=== PATIENT | male | born 1950 | race Caucasian/White ===

== ENCOUNTER 2017-11-21 00:17 | Inpatient (IN) | payer MEDICARE, OTHER ==
[~2017-11-21] VITALS: Ht 188 cm; Wt 102.5 kg
[2017-11-21] MEDS ORDERED: SODIUM CHLORIDE 0.9% 3,000 ML IV ONE (00:45)
[2017-11-21] MEDS ORDERED: MEPERIDINE HCL (50 MG/ML) 1 ML VIAL IV ONE (01:00)
[2017-11-21] MEDS ORDERED: DILTIAZEM HCL 25 MG/5 ML VIAL IV ONE (01:00)
[2017-11-21] MEDS ORDERED: METOPROLOL TARTRATE 1MG/1ML-5ML VIAL IV ONE (01:00)
[2017-11-21 01:31] LABS: Hemoglobin 13.5 g/dL (13.5-17.5); Mean Corpuscular Hemoglobin 30.3 pg (28.0-32.0); Platelet Count (auto) 107 10^3/uL (140-450); Red Blood Cells 4.45 10^6/uL (4.5-5.90); Red Cell Distribution Width 14.5 % (11.8-14.3); White Blood Cell 10.6 10^3/uL (4.4-10.8)
[2017-11-21 01:35] LABS: Alanine Aminotransferase 25 U/L (16-61); Albumin 4.1 g/dL (3.4-5.0); Anion Gap 13 (5-15); Aspartate Aminotransferase 26 U/L (15-37); BUN/Creatinine Ratio 24.4; Blood Urea Nitrogen 54 mg/dL (7-18); Calcium 8.4 mg/dL (8.5-10.1); Carbon Dioxide 26 mmol/L (21-32); Chloride 94 mmol/L (98-107); GFR African American 38 mL/min; GFR Non-African American 32 mL/min; Glucose 167 mg/dL (74-106); Potassium 4.2 mmol/L (3.5-5.1); Sodium 133 mmol/L (136-145)
[2017-11-21 01:39] LABS: Alkaline Phosphatase 208 U/L (45-117); Total Protein 9.2 g/dL (6.4-8.2)
[2017-11-21] MEDS ORDERED: ACETAMINOPHEN IV 1000 MG/100ML (10MG/ML) IV ONE (01:45)
[2017-11-21 01:52] LABS: Basophils % (manual) 0 (0.0-2.0); Blast Cells 0; Eosinophils % (manual) 0 (0-7); Metamyelocytes % 0; Myelocytes % 0; Promyelocytes % 0; Reactive Lymphocytes 0
[2017-11-21 01:53] LABS: Lactic Acid w/Reflex 3.1 mmol/L (0.4-2.0)
[2017-11-21 02:34] LABS: Urine Bacteria FEW /hpf (None Seen); Urine Blood TRACE /uL (Negative); Urine Specific Gravity 1.009 (1.001-1.035); Urine WBC 1 /hpf (0 - 3)
[2017-11-21] MEDS ORDERED: VANCOMYCIN 1GM/250ML 250 ML IV ONE (02:45)
[2017-11-21] MEDS ORDERED: LEVOFLOXACIN 750MG 150 ML IV ONE (02:45)
[2017-11-21] MEDS ORDERED: IBUPROFEN 100MG/5ML ORAL SUSP 100 MG/5 ML UD GT ONE (03:15)
[2017-11-21 03:34] LABS: Band Neutrophils % (manual) 2; Lymphocytes % (manual) 3 (10.0-50.0); Monocytes % (manual) 2 (0-12)
[2017-11-21 04:59] LABS: Fibrinogen 355.7 mg/dL (177-375); INR 1.44 (0.9-1.15); Prothrombin Time 15.1 sec (9.27-12.13)
[2017-11-21 05:07] LABS: Partial Thromboplastin Time 74.1 sec (23.78-33.04)
[2017-11-21] MEDS ORDERED: ONDANSETRON HCL 4 MG/2 ML VIAL IV PRN (05:15)
[2017-11-21] MEDS ORDERED: ACETAMINOPHEN 500 MG TAB PO PRN (05:15)
[2017-11-21] MEDS ORDERED: GLIP-115 PO (05:19)
[2017-11-21] MEDS ORDERED: CITA10TA59 PO (05:19)
[2017-11-21] MEDS ORDERED: MORP60TA25 PO (05:19)
[2017-11-21] MEDS ORDERED: FURO40TA PO (05:19)
[2017-11-21] MEDS ORDERED: METO-5 PO (05:19)
[2017-11-21] MEDS ORDERED: WARF4TAB31 PO (05:19)
[2017-11-21] MEDS ORDERED: ALPR0.254 PO (05:19)
[2017-11-21] MEDS ORDERED: SUCR1TAB38 PO (05:19)
[2017-11-21] MEDS ORDERED: GABA300C10 PO (05:19)
[2017-11-21] MEDS ORDERED: FERR27TA2 PO (05:19)
[2017-11-21] MEDS ORDERED: PANT40TA2 PO (05:19)
[2017-11-21] MEDS ORDERED: HYDR-4683 PO (05:19)
[2017-11-21] MEDS ORDERED: MULT-228 PO (05:19)
[2017-11-21] MEDS ORDERED: DOCU-94 PO (05:19)
[2017-11-21] MEDS ORDERED: SIMV20TA90 PO (05:19)
[2017-11-21] MEDS ORDERED: DEXTROSE (50%) 50ML SYRG IV PRN (05:30)
[2017-11-21] MEDS ORDERED: GABAPENTIN 300 MG CAP PO SCH (06:00)
[2017-11-21] MEDS: FUROSEMIDE 40 MG TAB PO SCH ×2 (06:00→18:25)
[2017-11-21] MEDS ORDERED: PIPERACILLIN-TAZOB 3.375GM 100 ML IV SCH (06:00)
[2017-11-21] MEDS ORDERED: MOXI0.5D OP (06:01)
[2017-11-21] MEDS ORDERED: PRED1SUS3 OP (06:01)
[2017-11-21] MEDS ORDERED: ALBUTEROL SULF 2.5 MG/0.5ML(0.5%) NEB SOLN NEB PRN (06:30)
[2017-11-21] MEDS: ACCU-CHEK COMFORT CURVE STRIP VI SCH ×3 (07:00→17:00)
[2017-11-21] MEDS: InsuLIN REG 1unit/0.01ml Soln (100units/ml) SC SCH ×4 (07:02→22:00)
[2017-11-21] MEDS: FERROUS SULFATE 325 MG TAB PO SCH ×2 (08:00→19:19)
[2017-11-21] MEDS ORDERED: VANCOMYCIN PER PHARMACY 0 MG IV SCH (08:30)
[2017-11-21 08:35] VITALS: BP 97/59
[2017-11-21] MEDS: MEROPENEM 1gm/20ml IVPUSH 20 ML IV SCH ×2 (08:55→21:00)
[2017-11-21] MEDS: MOXIFLOXACIN 0.5% EACHEYE SCH ×2 (09:15→14:21)
[2017-11-21] MEDS: OPTH EACHEYE SCH ×2 (09:15→14:21)
[2017-11-21] MEDS: prednisoLONE ACETATE 1% OPTH SUSP 5ML LEFTEYE SCH ×3 (09:45→17:38)
[2017-11-21] MEDS: GABAPENTIN 300 MG CAP PO SCH ×2 (09:57→22:29)
[2017-11-21] MEDS: PANTOPRAZOLE 40 MG TAB PO SCH (09:57)
[2017-11-21] MEDS ORDERED: VANCOMYCIN 1GM/250ML 250 ML IV SCH (10:00)
[2017-11-21] MEDS ORDERED: CITALOPRAM HYDROBR 20 MG TAB PO SCH (10:00)
[2017-11-21] MEDS ORDERED: PATIENTS OWN MEDICATION EACHEYE SCH (12:00)
[2017-11-21] MEDS ORDERED: WARFARIN SODIUM 2.5 MG TAB PO ONE (17:00)
[2017-11-21] MEDS: CITALOPRAM HYDROBR 20 MG TAB PO SCH (22:28)
[2017-11-21] MEDS: METOPROLOL TARTRATE 50 MG TAB PO SCH (22:29)
[2017-11-21] MEDS: HYDROcodone-ACET 5/325MG TAB PO PRN (22:29)
[2017-11-22] VITALS (8 sets, daily range): BP systolic 116–138; BP diastolic 65–82
[2017-11-22] MEDS: OPTH EACHEYE SCH ×4 (00:09→22:27)
[2017-11-22] MEDS: MOXIFLOXACIN 0.5% EACHEYE SCH ×4 (00:09→22:27)
[2017-11-22] MEDS: ACCU-CHEK COMFORT CURVE STRIP VI SCH ×5 (00:09→22:28)
[2017-11-22] MEDS: prednisoLONE ACETATE 1% OPTH SUSP 5ML LEFTEYE SCH ×4 (00:10→17:58)
[2017-11-22] MEDS: VANCOMYCIN 1GM/250ML 250 ML IV SCH (04:23)
[2017-11-22 06:28] LABS: Basophils # (auto) 0 uL; Basophils % (auto) 0.2 % (0.0-2.0); Eosinophils # (auto) 0 uL; Eosinophils % (auto) 0.9 % (0.0-7.0); Hematocrit 36.5 % (41.0-53.0); Hemoglobin 12.1 g/dL (13.5-17.5); Lymphocytes # (auto) 0.3 uL; Lymphocytes % (auto) 9.1 % (10.0-50.0); Mean Corpuscular Hemoglobin 30.8 pg (28.0-32.0); Mean Corpuscular Hgb Conc. 33.3 g/dL (32.0-36.0); Mean Corpuscular Volume 92.4 fL (80.0-100.0); Monocytes # (auto) 0.3 uL; Monocytes % (auto) 7.6 % (0.0-12.0); Neutrophils # (auto) 3.1 uL; Neutrophils % (auto) 82.2 % (37.0-80.0); Nucleated Red Blood Cells % 0.1 %; Platelet Count (auto) 67 10^3/uL (140-450); Red Blood Cells 3.95 10^6/uL (4.5-5.90); Red Cell Distribution Width 14.7 % (11.8-14.3); White Blood Cell 3.7 10^3/uL (4.4-10.8)
[2017-11-22] MEDS: FUROSEMIDE 40 MG TAB PO SCH ×2 (06:41→17:57)
[2017-11-22] MEDS: InsuLIN REG 1unit/0.01ml Soln (100units/ml) SC SCH ×4 (06:42→22:28)
[2017-11-22 06:48] LABS: BUN/Creatinine Ratio 29.4; Calcium 8.1 mg/dL (8.5-10.1); Potassium 3.9 mmol/L (3.5-5.1)
[2017-11-22 06:51] LABS: Bilirubin, Total 0.8 mg/dL (0.2-1.0)
[2017-11-22 08:23] LABS: INR 1.55 (0.9-1.15); Prothrombin Time 16.2 sec (9.27-12.13)
[2017-11-22] MEDS: FERROUS SULFATE 325 MG TAB PO SCH ×2 (09:00→17:57)
[2017-11-22] MEDS: METOPROLOL TARTRATE 50 MG TAB PO SCH ×2 (10:08→22:28)
[2017-11-22] MEDS: PANTOPRAZOLE 40 MG TAB PO SCH (10:09)
[2017-11-22] MEDS: GABAPENTIN 300 MG CAP PO SCH ×2 (10:09→22:28)
[2017-11-22] MEDS: MEROPENEM 1gm/20ml IVPUSH 20 ML IV SCH ×2 (10:26→21:26)
[2017-11-22] MEDS: HYDROcodone-ACET 5/325MG TAB PO PRN ×3 (10:27→22:28)
[2017-11-22] MEDS ORDERED: WARFARIN SODIUM 2 MG TAB PO ONE (17:00)
[2017-11-22] MEDS: CITALOPRAM HYDROBR 20 MG TAB PO SCH (22:27)
[2017-11-23] MEDS: prednisoLONE ACETATE 1% OPTH SUSP 5ML LEFTEYE SCH ×4 (01:34→18:14)
[2017-11-23] MEDS: VANCOMYCIN 1GM/250ML 250 ML IV SCH (03:05)
[2017-11-23] MEDS: HYDROcodone-ACET 5/325MG TAB PO PRN ×3 (03:06→21:29)
[2017-11-23 05:18] VITALS: BP 133/81
[2017-11-23] MEDS: MOXIFLOXACIN 0.5% EACHEYE SCH ×3 (06:43→22:28)
[2017-11-23] MEDS: OPTH EACHEYE SCH ×3 (06:43→22:28)
[2017-11-23] MEDS: FUROSEMIDE 40 MG TAB PO SCH ×2 (06:44→18:14)
[2017-11-23] MEDS: ACCU-CHEK COMFORT CURVE STRIP VI SCH ×4 (06:44→22:00)
[2017-11-23] MEDS: InsuLIN REG 1unit/0.01ml Soln (100units/ml) SC SCH ×4 (06:44→23:13)
[2017-11-23 06:48] LABS: Basophils # (auto) 0 uL; Basophils % (auto) 0.3 % (0.0-2.0); Eosinophils # (auto) 0.1 uL; Eosinophils % (auto) 2.6 % (0.0-7.0); Hematocrit 36.6 % (41.0-53.0); Hemoglobin 12.4 g/dL (13.5-17.5); Lymphocytes # (auto) 0.5 uL; Lymphocytes % (auto) 11.7 % (10.0-50.0); Mean Corpuscular Hemoglobin 30.8 pg (28.0-32.0); Mean Corpuscular Hgb Conc. 33.7 g/dL (32.0-36.0); Mean Corpuscular Volume 91.4 fL (80.0-100.0); Monocytes # (auto) 0.5 uL; Monocytes % (auto) 10.4 % (0.0-12.0); Neutrophils # (auto) 3.3 uL; Nucleated Red Blood Cells % 0.1 %; Platelet Count (auto) 84 10^3/uL (140-450); Red Blood Cells 4.01 10^6/uL (4.5-5.90); Red Cell Distribution Width 14.5 % (11.8-14.3); White Blood Cell 4.4 10^3/uL (4.4-10.8)
[2017-11-23 07:00] LABS: INR 1.57 (0.9-1.15); Prothrombin Time 16.4 sec (9.27-12.13)
[2017-11-23 07:04] LABS: Partial Thromboplastin Time 73.5 sec (23.78-33.04)
[2017-11-23 07:14] LABS: Albumin 3.3 g/dL (3.4-5.0); BUN/Creatinine Ratio 27.8; Bilirubin, Total 0.9 mg/dL (0.2-1.0); Calcium 8.5 mg/dL (8.5-10.1); Potassium 3.5 mmol/L (3.5-5.1); Total Protein 7.8 g/dL (6.4-8.2)
[2017-11-23 08:00] VITALS: BP 138/74
[2017-11-23] MEDS ORDERED: LEVOFLOXACIN 750MG 150 ML IV SCH (09:00)
[2017-11-23] MEDS: MEROPENEM 1gm/20ml IVPUSH 20 ML IV SCH ×2 (09:54→22:28)
[2017-11-23] MEDS: GABAPENTIN 300 MG CAP PO SCH ×2 (09:54→22:29)
[2017-11-23] MEDS: FERROUS SULFATE 325 MG TAB PO SCH ×2 (09:54→18:14)
[2017-11-23] MEDS: PANTOPRAZOLE 40 MG TAB PO SCH (09:54)
[2017-11-23] MEDS: METOPROLOL TARTRATE 50 MG TAB PO SCH ×2 (09:55→22:29)
[2017-11-23] MEDS: GENTAMICIN SULFATE 0.1% TOP SCH (10:00)
[2017-11-23 11:56] VITALS: BP 138/72
[2017-11-23] MEDS: MORPHINE SULF INJ 2 MG/ML SYRINGE 1ML IV PRN ×2 (14:59→23:15)
[2017-11-23 16:00] VITALS: BP 130/69
[2017-11-23] MEDS ORDERED: WARFARIN SODIUM 5 MG TAB PO ONE (17:00)
[2017-11-23 22:00] VITALS: BP 141/84
[2017-11-23] MEDS: DAKINS HALF STR 0.25% (NaHypochlorite) 473 ML TOPICAL SOL TOP SCH (22:00)
[2017-11-23] MEDS: AMLACTIN 12% TOP SCH (22:00)
[2017-11-23] MEDS: CITALOPRAM HYDROBR 20 MG TAB PO SCH (22:28)
[2017-11-24] MEDS: prednisoLONE ACETATE 1% OPTH SUSP 5ML LEFTEYE SCH ×4 (02:47→18:00)
[2017-11-24] MEDS: VANCOMYCIN 1GM/250ML 250 ML IV SCH (03:15)
[2017-11-24] MEDS: LORazepam 0.5 MG TAB PO PRN (03:15)
[2017-11-24] MEDS: HYDROcodone-ACET 5/325MG TAB PO PRN ×3 (04:15→22:56)
[2017-11-24 05:14] VITALS: BP 139/82
[2017-11-24 06:42] LABS: INR 1.49 (0.9-1.15); Prothrombin Time 15.6 sec (9.27-12.13)
[2017-11-24] MEDS: FUROSEMIDE 40 MG TAB PO SCH ×2 (06:42→18:16)
[2017-11-24] MEDS: OPTH EACHEYE SCH ×3 (06:42→23:25)
[2017-11-24] MEDS: MOXIFLOXACIN 0.5% EACHEYE SCH ×3 (06:42→23:25)
[2017-11-24] MEDS: InsuLIN REG 1unit/0.01ml Soln (100units/ml) SC SCH ×4 (06:43→23:26)
[2017-11-24] MEDS: ACCU-CHEK COMFORT CURVE STRIP VI SCH ×4 (06:43→23:27)
[2017-11-24] MEDS: FERROUS SULFATE 325 MG TAB PO SCH ×2 (08:00→18:16)
[2017-11-24 09:00] VITALS: BP 143/86
[2017-11-24] MEDS: MEROPENEM 1gm/20ml IVPUSH 20 ML IV SCH ×2 (09:08→21:49)
[2017-11-24] MEDS: GENTAMICIN SULFATE 0.1% TOP SCH (10:00)
[2017-11-24] MEDS: DAKINS HALF STR 0.25% (NaHypochlorite) 473 ML TOPICAL SOL TOP SCH ×2 (10:00→23:26)
[2017-11-24] MEDS: AMLACTIN 12% TOP SCH ×3 (10:00→23:26)
[2017-11-24] MEDS: PANTOPRAZOLE 40 MG TAB PO SCH (10:43)
[2017-11-24] MEDS: METOPROLOL TARTRATE 50 MG TAB PO SCH ×2 (10:43→23:25)
[2017-11-24] MEDS: GABAPENTIN 300 MG CAP PO SCH ×2 (10:44→23:26)
[2017-11-24 13:07] VITALS: BP 133/81
[2017-11-24 14:38] VITALS: BP 133/81
[2017-11-24 17:00] VITALS: BP 130/80
[2017-11-24] MEDS ORDERED: WARFARIN SODIUM 2.5 MG TAB PO ONE (17:00)
[2017-11-24 22:00] VITALS: BP 148/80
[2017-11-24] MEDS: CITALOPRAM HYDROBR 20 MG TAB PO SCH (23:26)
[2017-11-25] MEDS: prednisoLONE ACETATE 1% OPTH SUSP 5ML LEFTEYE SCH ×4 (00:12→17:36)
[2017-11-25] MEDS: VANCOMYCIN 1GM/250ML 250 ML IV SCH (03:22)
[2017-11-25 05:00] VITALS: BP 143/77
[2017-11-25 05:41] LABS: Basophils # (auto) 0 uL; Basophils % (auto) 0.5 % (0.0-2.0); Eosinophils # (auto) 0.1 uL; Eosinophils % (auto) 2.9 % (0.0-7.0); Hematocrit 37.6 % (41.0-53.0); Hemoglobin 12.6 g/dL (13.5-17.5); Lymphocytes # (auto) 0.7 uL; Lymphocytes % (auto) 14.5 % (10.0-50.0); Mean Corpuscular Hemoglobin 30.4 pg (28.0-32.0); Mean Corpuscular Hgb Conc. 33.6 g/dL (32.0-36.0); Mean Corpuscular Volume 90.6 fL (80.0-100.0); Monocytes # (auto) 0.6 uL; Monocytes % (auto) 11.8 % (0.0-12.0); Neutrophils # (auto) 3.6 uL; Neutrophils % (auto) 70.3 % (37.0-80.0); Nucleated Red Blood Cells % 0.1 %; Platelet Count (auto) 105 10^3/uL (140-450); Red Blood Cells 4.15 10^6/uL (4.5-5.90); Red Cell Distribution Width 14.3 % (11.8-14.3); White Blood Cell 5.1 10^3/uL (4.4-10.8)
[2017-11-25] MEDS: FUROSEMIDE 40 MG TAB PO SCH ×2 (06:00→17:36)
[2017-11-25 06:01] LABS: Albumin 3.7 g/dL (3.4-5.0); BUN/Creatinine Ratio 23.3; Bilirubin, Total 1.2 mg/dL (0.2-1.0); Calcium 8.8 mg/dL (8.5-10.1); Potassium 3.6 mmol/L (3.5-5.1); Total Protein 8.6 g/dL (6.4-8.2)
[2017-11-25] MEDS: MOXIFLOXACIN 0.5% EACHEYE SCH ×3 (06:22→21:28)
[2017-11-25] MEDS: OPTH EACHEYE SCH ×3 (06:22→21:28)
[2017-11-25] MEDS: InsuLIN REG 1unit/0.01ml Soln (100units/ml) SC SCH ×4 (06:23→21:30)
[2017-11-25] MEDS: ACCU-CHEK COMFORT CURVE STRIP VI SCH ×4 (06:24→21:30)
[2017-11-25] MEDS: HYDROcodone-ACET 5/325MG TAB PO PRN ×2 (07:46→21:09)
[2017-11-25] MEDS: FERROUS SULFATE 325 MG TAB PO SCH ×2 (08:00→17:36)
[2017-11-25 09:02] VITALS: BP_SYST 141; BP_SYST 162; BP_DIAS 108; BP_DIAS 114
[2017-11-25] MEDS ORDERED: IOHEXOL 350 MG/ML 100ML IJ ONE ×2 (09:28→09:38)
[2017-11-25] MEDS ORDERED: LIDOCAINE 2%HCL (LOCAL ANESTH.) INJ 10ml MDV ONE (09:28)
[2017-11-25] MEDS ORDERED: fentaNYL CITRATE 100 MCG/2 ML VL ONE (09:35)
[2017-11-25] MEDS ORDERED: ANGIOMAX 250 MG VIAL IV ONE ×3 (09:35→12:14)
[2017-11-25] MEDS ORDERED: MIDAZOLAM HCL 1MG/1ML-2 ML VIAL ONE (09:35)
[2017-11-25] MEDS ORDERED: SODIUM CHL 0.9% 50 ML ONE ×3 (09:35→12:14)
[2017-11-25] MEDS ORDERED: HYDROmorphone HCL 2 MG/ML VL ONE (09:58)
[2017-11-25] MEDS: GABAPENTIN 300 MG CAP PO SCH ×2 (10:00→21:29)
[2017-11-25] MEDS: PANTOPRAZOLE 40 MG TAB PO SCH (10:00)
[2017-11-25] MEDS: METOPROLOL TARTRATE 50 MG TAB PO SCH (10:00)
[2017-11-25] MEDS: AMLACTIN 12% TOP SCH ×2 (10:00→21:30)
[2017-11-25] MEDS: GENTAMICIN SULFATE 0.1% TOP SCH (10:00)
[2017-11-25] MEDS: DAKINS HALF STR 0.25% (NaHypochlorite) 473 ML TOPICAL SOL TOP SCH ×2 (10:00→21:30)
[2017-11-25] MEDS ORDERED: methylPREDNISolone SOD SUCC 125 MG/2 ML VL ONE ×2 (10:12→10:35)
[2017-11-25] MEDS ORDERED: METOPROLOL TARTRATE 1MG/1ML-5ML VIAL IV ONE ×2 (10:22→19:45)
[2017-11-25] MEDS ORDERED: ONDANSETRON HCL 4 MG/2 ML VIAL ONE (10:38)
[2017-11-25] MEDS ORDERED: hydrOXYzine HCL 10 MG TAB PO ONE (10:45)
[2017-11-25] MEDS ORDERED: ALBUTEROL SULF 2.5 MG/0.5ML(0.5%) NEB SOLN NEB ONE (10:45)
[2017-11-25] MEDS ORDERED: IPRATROPIUM BROM 0.5 MG/2.5ML INH SOL NEB ONE (10:45)
[2017-11-25] MEDS ORDERED: IPRATROPIUM BROM 0.5 MG/2.5ML INH SOL ONE (10:46)
[2017-11-25] MEDS ORDERED: CLOPIDOGREL 300 MG TAB ONE (10:49)
[2017-11-25] MEDS: ceFAZolin 1GM/50ML 50 ML IV SCH ×2 (14:00→21:28)
[2017-11-25 17:00] VITALS: BP 123/77
[2017-11-25] MEDS ORDERED: METOPROLOL TARTRATE 25 MG TAB PO ONE (19:15)
[2017-11-25] MEDS ORDERED: AMIODARONE HCL 150 MG in D5W 5% 100 ML IV ONE (19:30)
[2017-11-25] MEDS: AMIODARONE HCL 200 MG TAB PO SCH (21:28)
[2017-11-25] MEDS: METOPROLOL TARTRATE 25 MG TAB PO SCH (21:29)
[2017-11-25] MEDS: CITALOPRAM HYDROBR 20 MG TAB PO SCH (21:29)
[2017-11-25 21:41] VITALS: BP 105/72
[2017-11-25] MEDS ORDERED: InsuLIN REG 1unit/0.01ml Soln (100units/ml) IV ONE (23:45)
[2017-11-25] MEDS ORDERED: SODIUM CHLORIDE 0.9% 500 ML IV ONE (23:45)
[2017-11-26] MEDS ORDERED: METOPROLOL TARTRATE 1MG/1ML-5ML VIAL IV SCH
[2017-11-26] MEDS: prednisoLONE ACETATE 1% OPTH SUSP 5ML LEFTEYE SCH ×4 (00:16→18:15)
[2017-11-26] MEDS: HYDROcodone-ACET 5/325MG TAB PO PRN ×2 (02:00→09:18)
[2017-11-26] MEDS: LORazepam 0.5 MG TAB PO PRN (04:32)
[2017-11-26 04:46] VITALS: BP 127/70
[2017-11-26 05:33] LABS: Basophils # (auto) 0 uL; Basophils % (auto) 0.1 % (0.0-2.0); Eosinophils # (auto) 0 uL; Hematocrit 35.3 % (41.0-53.0); Lymphocytes # (auto) 0.5 uL; Lymphocytes % (auto) 4.9 % (10.0-50.0); Mean Corpuscular Hemoglobin 30.7 pg (28.0-32.0); Mean Corpuscular Hgb Conc. 34.1 g/dL (32.0-36.0); Mean Corpuscular Volume 90.2 fL (80.0-100.0); Monocytes # (auto) 0.6 uL; Monocytes % (auto) 5.3 % (0.0-12.0); Neutrophils # (auto) 9.4 uL; Neutrophils % (auto) 89.7 % (37.0-80.0); Nucleated Red Blood Cells % 0.1 %; Platelet Count (auto) 111 10^3/uL (140-450); Red Blood Cells 3.92 10^6/uL (4.5-5.90); Red Cell Distribution Width 14.4 % (11.8-14.3); White Blood Cell 10.5 10^3/uL (4.4-10.8)
[2017-11-26 05:52] LABS: Albumin 3.7 g/dL (3.4-5.0); Bilirubin, Total 0.8 mg/dL (0.2-1.0); Calcium 8.2 mg/dL (8.5-10.1); Potassium 4.2 mmol/L (3.5-5.1)
[2017-11-26] MEDS: ceFAZolin 1GM/50ML 50 ML IV SCH (06:10)
[2017-11-26] MEDS: MOXIFLOXACIN 0.5% EACHEYE SCH ×3 (06:10→22:42)
[2017-11-26] MEDS: OPTH EACHEYE SCH ×3 (06:10→22:42)
[2017-11-26] MEDS: FUROSEMIDE 40 MG TAB PO SCH ×2 (06:11→18:13)
[2017-11-26] MEDS: InsuLIN REG 1unit/0.01ml Soln (100units/ml) SC SCH ×4 (06:11→22:44)
[2017-11-26] MEDS: ACCU-CHEK COMFORT CURVE STRIP VI SCH ×4 (06:12→22:43)
[2017-11-26 07:18] VITALS: BP 141/66
[2017-11-26] MEDS: FERROUS SULFATE 325 MG TAB PO SCH ×2 (09:18→18:12)
[2017-11-26] MEDS: GENTAMICIN SULFATE 0.1% TOP SCH (10:00)
[2017-11-26] MEDS: ASPirin 81 mg TAB PO SCH (10:11)
[2017-11-26] MEDS: AMIODARONE HCL 200 MG TAB PO SCH ×2 (10:11→22:43)
[2017-11-26] MEDS: METOPROLOL TARTRATE 25 MG TAB PO SCH ×2 (10:12→22:42)
[2017-11-26] MEDS: PANTOPRAZOLE 40 MG TAB PO SCH (10:13)
[2017-11-26] MEDS: GABAPENTIN 300 MG CAP PO SCH ×2 (10:13→22:43)
[2017-11-26] MEDS: CLOPIDOGREL BISULFATE 75 MG TAB PO SCH (10:13)
[2017-11-26 13:14] VITALS: BP 135/94
[2017-11-26] MEDS ORDERED: ERTAPENEM SOD INJ 1 GM in SODIUM CHL 0.9% 50 ML IV ONE (13:15)
[2017-11-26] MEDS: DAKINS HALF STR 0.25% (NaHypochlorite) 473 ML TOPICAL SOL TOP SCH ×2 (13:30→22:43)
[2017-11-26] MEDS: MORPHINE SULF INJ 2 MG/ML SYRINGE 1ML IV PRN ×2 (13:31→22:44)
[2017-11-26] MEDS: AMLACTIN 12% TOP SCH ×2 (13:32→22:00)
[2017-11-26 16:39] VITALS: BP 148/90
[2017-11-26 16:44] VITALS: BP 135/94
[2017-11-26] MEDS ORDERED: ACCU-CHEK COMFORT CURVE STRIP VI SCH (20:00)
[2017-11-26] MEDS ORDERED: DEXTROSE (50%) 50ML SYRG IV SCH (20:00)
[2017-11-26] MEDS ORDERED: InsuLIN REG 1unit/0.01ml Soln (100units/ml) SC SCH (20:00)
[2017-11-26 22:00] VITALS: BP 144/79
[2017-11-26] MEDS: CITALOPRAM HYDROBR 20 MG TAB PO SCH (22:43)
[2017-11-27] MEDS: prednisoLONE ACETATE 1% OPTH SUSP 5ML LEFTEYE SCH ×3 (03:38→12:35)
[2017-11-27] MEDS: LORazepam 0.5 MG TAB PO PRN (04:19)
[2017-11-27 05:00] VITALS: BP 148/92
[2017-11-27] MEDS: InsuLIN REG 1unit/0.01ml Soln (100units/ml) SC SCH ×3 (07:00→17:00)
[2017-11-27] MEDS: FUROSEMIDE 40 MG TAB PO SCH (07:00)
[2017-11-27] MEDS: ACCU-CHEK COMFORT CURVE STRIP VI SCH ×3 (07:01→17:00)
[2017-11-27] MEDS: OPTH EACHEYE SCH ×2 (07:01→15:12)
[2017-11-27] MEDS: MOXIFLOXACIN 0.5% EACHEYE SCH ×2 (07:01→15:12)
[2017-11-27 08:56] VITALS: BP 143/79
[2017-11-27] MEDS: GENTAMICIN SULFATE 0.1% TOP SCH (10:00)
[2017-11-27] MEDS: ASPirin 81 mg TAB PO SCH (10:00)
[2017-11-27] MEDS: CLOPIDOGREL BISULFATE 75 MG TAB PO SCH (10:00)
[2017-11-27] MEDS: GABAPENTIN 300 MG CAP PO SCH (10:00)
[2017-11-27] MEDS: AMIODARONE HCL 200 MG TAB PO SCH (10:00)
[2017-11-27] MEDS: AMLACTIN 12% TOP SCH (10:00)
[2017-11-27] MEDS: DAKINS HALF STR 0.25% (NaHypochlorite) 473 ML TOPICAL SOL TOP SCH (10:00)
[2017-11-27] MEDS ORDERED: ERTAPENEM SOD INJ 1 GM in SODIUM CHL 0.9% 50 ML IV SCH (10:00)
[2017-11-27] MEDS: METOPROLOL TARTRATE 25 MG TAB PO SCH (10:02)
[2017-11-27] MEDS: FERROUS SULFATE 325 MG TAB PO SCH (10:02)
[2017-11-27] MEDS: PANTOPRAZOLE 40 MG TAB PO SCH (10:03)
[2017-11-27] MEDS: HYDROcodone-ACET 5/325MG TAB PO PRN ×2 (10:03→16:54)
[2017-11-27 13:00] VITALS: BP 148/83
[2017-11-27] MEDS ORDERED: LIDOCAINE 1% (LOCAL ANESTH.) PF 5ml SDV ID ONE (14:00)
[2017-11-27 17:10] VITALS: BP 142/86
[2017-11-27] MEDS ORDERED: SODIUM CHLOR 0.9% PF (SALINE LOCK) 10ML VIAL/SYR IV SCH (22:00)
== END 2017-11-27 17:07 | disposition home or self-care (01) | DRG 981 ==
LOC: ER 00:17 → TELE 00:18 → TELE-CENTR 20:43
PROVIDERS: ADMIT Nurse Practitioner Family; ATTEND Family Medicine
PROC: B41G1ZZ Fluoroscopy of Left Lower Extremity Arteries using Low Osmolar Contrast (ICD-10-PCS; principal; 2017-11-25)
PROC: 047R3Z1 Dilation of Right Posterior Tibial Artery using Drug-Coated Balloon, Percutaneous Approach (ICD-10-PCS; 2017-11-25)
PROC: B41F1ZZ Fluoroscopy of Right Lower Extremity Arteries using Low Osmolar Contrast (ICD-10-PCS; 2017-11-25)
PROC: 02HV33Z Insertion of Infusion Device into Superior Vena Cava, Percutaneous Approach (ICD-10-PCS; 2017-11-27)
DX: T87.43 Infection of amputation stump, right lower extremity (principal); A41.9 Sepsis, unspecified organism; G93.41 Metabolic encephalopathy; R65.21 Severe sepsis with septic shock; E87.1 Hypo-osmolality and hyponatremia; I48.1 Persistent atrial fibrillation; I13.0 Hypertensive heart and chronic kidney disease with heart failure and stage 1 through stage 4 chronic kidney disease, or unspecified chronic kidney disease; L97.429 Non-pressure chronic ulcer of left heel and midfoot with unspecified severity; L03.115 Cellulitis of right lower limb; L03.116 Cellulitis of left lower limb; N18.3 Chronic kidney disease, stage 3 (moderate); E78.00 Pure hypercholesterolemia, unspecified; K21.9 Gastro-esophageal reflux disease without esophagitis; I50.9 Heart failure, unspecified; E11.51 Type 2 diabetes mellitus with diabetic peripheral angiopathy without gangrene; E11.22 Type 2 diabetes mellitus with diabetic chronic kidney disease; E11.621 Type 2 diabetes mellitus with foot ulcer; E78.5 Hyperlipidemia, unspecified; G43.909 Migraine, unspecified, not intractable, without status migrainosus; I25.10 Atherosclerotic heart disease of native coronary artery without angina pectoris; K70.30 Alcoholic cirrhosis of liver without ascites; L97.519 Non-pressure chronic ulcer of other part of right foot with unspecified severity; R32 Unspecified urinary incontinence; Y83.8 Other surgical procedures as the cause of abnormal reaction of the patient, or of later complication, without mention of misadventure at the time of the procedure; Z79.01 Long term (current) use of anticoagulants; Z79.4 Long term (current) use of insulin; Z83.3 Family history of diabetes mellitus; Z86.14 Personal history of Methicillin resistant Staphylococcus aureus infection; Z89.431 Acquired absence of right foot; Z95.820 Peripheral vascular angioplasty status with implants and grafts; Z98.42 Cataract extraction status, left eye; Z79.899 Other long term (current) drug therapy; Z79.82 Long term (current) use of aspirin
CPT/HCPCS: 36415; 36569; 37228; 70450; 71045; 75716; 80053; 80202; 80320; 81001; 82553; 82962; 83605; 83880; 84484; 85007; 85025; 85027; 85379; 85384; 85610; 85730; 86850; 86900; 86901; 87040; 87077; 87081; 87086; 87186; 87205; 93005; 93926; 93970; 94761; 96361; 96365; 96367; 96375; 96379; 99152; 99291; A6257; C1769; J0131; J0690; J1335; J1815; J2001; J2250; J2405; J7060

== ENCOUNTER 2017-12-03 10:22 | Emergency (ER) | payer MEDICARE, OTHER ==
[~2017-12-03] VITALS: Ht 177.8 cm; Wt 79.4 kg
[~2017-12-03 10:22] MED LIST: ALPR0.254 PO; CITA10TA59 PO; DOCU-94 PO; FERR27TA2 PO; FURO40TA PO; GABA300C10 PO; GLIP-115 PO; HYDR-4683 PO; METO-5 PO; MORP60TA25 PO; MOXI0.5D OP; MULT-228 PO; PANT40TA2 PO; PRED1SUS3 OP; SIMV20TA90 PO; SUCR1TAB38 PO; WARF4TAB31 PO
[2017-12-03 11:25] LABS: Basophils # (auto) 0.1 uL; Basophils % (auto) 0.4 % (0.0-2.0); Eosinophils # (auto) 0.1 uL; Eosinophils % (auto) 0.9 % (0.0-7.0); Hematocrit 36.4 % (41.0-53.0); Hemoglobin 11.7 g/dL (13.5-17.5); Lymphocytes # (auto) 0.5 uL; Lymphocytes % (auto) 3.9 % (10.0-50.0); Mean Corpuscular Hemoglobin 29.8 pg (28.0-32.0); Mean Corpuscular Hgb Conc. 32.2 g/dL (32.0-36.0); Mean Corpuscular Volume 92.7 fL (80.0-100.0); Monocytes # (auto) 0.7 uL; Monocytes % (auto) 5.1 % (0.0-12.0); Neutrophils # (auto) 12.3 uL; Neutrophils % (auto) 89.7 % (37.0-80.0); Platelet Count (auto) 168 10^3/uL (140-450); Red Blood Cells 3.93 10^6/uL (4.5-5.90); Red Cell Distribution Width 14.8 % (11.8-14.3); White Blood Cell 13.7 10^3/uL (4.4-10.8)
[2017-12-03 11:51] LABS: Alanine Aminotransferase 30 U/L (16-61); Albumin 3.6 g/dL (3.4-5.0); Alkaline Phosphatase 178 U/L (45-117); Anion Gap 10 (5-15); Aspartate Aminotransferase 22 U/L (15-37); Bilirubin, Total 0.7 mg/dL (0.2-1.0); Blood Urea Nitrogen 47 mg/dL (7-18); Calcium 8.5 mg/dL (8.5-10.1); Carbon Dioxide 29 mmol/L (21-32); Chloride 97 mmol/L (98-107); GFR African American 40 mL/min; GFR Non-African American 33 mL/min; Glucose 172 mg/dL (74-106); Potassium 3.9 mmol/L (3.5-5.1); Sodium 136 mmol/L (136-145); Total Protein 7.7 g/dL (6.4-8.2)
[2017-12-03] MEDS ORDERED: AZITHROMYCIN 500MG/ 250ML 250 ML IV ONE (12:15)
[2017-12-03] MEDS ORDERED: cefTRIAXone 1GM/10ml IVPUSH 10 ML IV ONE (12:15)
[2017-12-03 12:53] VITALS: BP 107/64
== END 2017-12-03 13:05 | disposition short-term general hospital (02) ==
LOC: ER 10:22 → EDBD 10:22 → EDUNIT# 10:22 → MERGE 10:22 → ER 13:05
DX: I61.8 Other nontraumatic intracerebral hemorrhage (principal); J18.9 Pneumonia, unspecified organism; I48.91 Unspecified atrial fibrillation; E11.9 Type 2 diabetes mellitus without complications; I10 Essential (primary) hypertension; Z88.8 Allergy status to other drugs, medicaments and biological substances
CPT/HCPCS: 36415; 70450; 71045; 72192; 73080; 80053; 84484; 85025; 87040; 93005; 96374; 99291; J0696

== ENCOUNTER → 2018-01-04 | Outpatient (CLI) | payer MEDICARE, BC ==
[~2018-01-04] MED LIST changes: +RIVA20TA PO
== END | disposition home or self-care (01) ==
LOC: Rad HDHVI 13:03
PROVIDERS: ATTEND Internal Medicine Cardiovascular Disease
DX: I08.1 Rheumatic disorders of both mitral and tricuspid valves (principal); I48.91 Unspecified atrial fibrillation; E78.9 Disorder of lipoprotein metabolism, unspecified; I73.9 Peripheral vascular disease, unspecified; I27.20 Pulmonary hypertension, unspecified; F41.9 Anxiety disorder, unspecified; F10.99 Alcohol use, unspecified with unspecified alcohol-induced disorder; E11.9 Type 2 diabetes mellitus without complications; R22.43 Localized swelling, mass and lump, lower limb, bilateral; Z88.6 Allergy status to analgesic agent; Z88.8 Allergy status to other drugs, medicaments and biological substances
CPT/HCPCS: 93306; 93926

== ENCOUNTER 2018-01-25 16:25 | Inpatient (IN) | payer MEDICARE, OTHER ==
[~2018-01-25] VITALS: Ht 188 cm; Wt 100.1 kg
[~2018-01-25 16:25] MED LIST changes: -RIVA20TA PO
[2018-01-25] MEDS ORDERED: SODIUM CHLORIDE 0.9% 500 ML IVB ONE (16:50)
[2018-01-25 17:02] LABS: Basophils # (auto) 0 uL; Eosinophils # (auto) 0.2 uL; Eosinophils % (auto) 4.8 % (0.0-7.0); Hematocrit 30.9 % (41.0-53.0); Hemoglobin 10.2 g/dL (13.5-17.5); Lymphocytes # (auto) 0.8 uL; Lymphocytes % (auto) 18.3 % (10.0-50.0); Mean Corpuscular Hemoglobin 31.5 pg (28.0-32.0); Mean Corpuscular Hgb Conc. 32.8 g/dL (32.0-36.0); Monocytes # (auto) 0.4 uL; Monocytes % (auto) 9.1 % (0.0-12.0); Neutrophils # (auto) 2.8 uL; Neutrophils % (auto) 66.8 % (37.0-80.0); Platelet Count (auto) 124 10^3/uL (140-450); Red Blood Cells 3.22 10^6/uL (4.5-5.90); Red Cell Distribution Width 15.1 % (11.8-14.3); White Blood Cell 4.2 10^3/uL (4.4-10.8)
[2018-01-25 17:19] LABS: Alanine Aminotransferase 21 U/L (16-61); Albumin 3.3 g/dL (3.4-5.0); Anion Gap 11 (5-15); Aspartate Aminotransferase 16 U/L (15-37); BUN/Creatinine Ratio 25.6; Blood Urea Nitrogen 57 mg/dL (7-18); Calcium 7.9 mg/dL (8.5-10.1); Carbon Dioxide 26 mmol/L (21-32); Chloride 101 mmol/L (98-107); GFR African American 38 mL/min; GFR Non-African American 31 mL/min; Glucose 169 mg/dL (74-106); Sodium 138 mmol/L (136-145)
[2018-01-25 17:24] LABS: Alkaline Phosphatase 159 U/L (45-117); Bilirubin, Total 0.5 mg/dL (0.2-1.0)
[2018-01-25] MEDS ORDERED: ALPRAZolam 0.25 MG TAB PO PRN (19:00)
[2018-01-25] MEDS ORDERED: TEMAZEPAM 15 MG CAP PO PRN (19:15)
[2018-01-25] MEDS ORDERED: MORPHINE SULFATE 4 MG/ML SYR/VIAL IV PRN ×2 (19:15)
[2018-01-25] MEDS ORDERED: ONDANSETRON HCL 4 MG/2 ML VIAL IV PRN (19:15)
[2018-01-25] MEDS ORDERED: DOCUSATE SOD 100 MG CAP PO PRN (19:15)
[2018-01-25] MEDS ORDERED: NITROGLYCERIN 0.4 MG SL TAB SL PRN (19:15)
[2018-01-25] MEDS ORDERED: ACETAMINOPHEN 325 MG TAB PO PRN (19:15)
[2018-01-25] MEDS ORDERED: DEXTROSE (50%) 50ML SYRG IV PRN (19:15)
[2018-01-25] MEDS ORDERED: ASPirin-EC 81 mg tab PO ONE (19:30)
[2018-01-25 20:18] LABS: INR 1.27 (0.9-1.15); Prothrombin Time 13.4 sec (9.27-12.13)
[2018-01-25 20:22] LABS: Partial Thromboplastin Time 95.6 sec (23.78-33.04)
[2018-01-25] MEDS ORDERED: WARFARIN SODIUM 2 MG TAB PO ONE (21:00)
[2018-01-25] MEDS: ERTAPENEM SOD INJ 1 GM in SODIUM CHL 0.9% 50 ML IV SCH (21:11)
[2018-01-25 21:35] VITALS: BP 125/85
[2018-01-25] MEDS: InsuLIN REG 1unit/0.01ml Soln (100units/ml) SC SCH (22:00)
[2018-01-25] MEDS ORDERED: GABAPENTIN 300 MG CAP PO SCH ×2 (22:00)
[2018-01-25] MEDS ORDERED: FAMOTIDINE 20 MG TAB PO SCH ×2 (22:00)
[2018-01-25] MEDS: SODIUM CHLOR 0.9% PF (SALINE LOCK) 10ML VIAL/SYR IV SCH (22:40)
[2018-01-25] MEDS: SUCRALFATE 1 GM TAB PO SCH (22:40)
[2018-01-25] MEDS: AMIODARONE HCL 200 MG TAB PO SCH (22:41)
[2018-01-25] MEDS: ATORVASTATIN 20 MG TAB PO SCH (22:42)
[2018-01-25] MEDS: METOPROLOL TARTRATE 50 MG TAB PO SCH (22:43)
[2018-01-25] MEDS: ASCORBIC ACID 500 MG TAB PO SCH (22:44)
[2018-01-25] MEDS: ACCU-CHEK COMFORT CURVE STRIP VI SCH (22:45)
[2018-01-25 22:47] VITALS: BP 125/83
[2018-01-26] MEDS: prednisoLONE ACETATE 1% OPTH SUSP 5ML EACHEYE SCH ×5 (06:00→23:31)
[2018-01-26 06:04] VITALS: BP 130/78
[2018-01-26 06:16] LABS: Basophils # (auto) 0 uL; Basophils % (auto) 0.7 % (0.0-2.0); Eosinophils # (auto) 0.1 uL; Hemoglobin 11.1 g/dL (13.5-17.5); Lymphocytes # (auto) 0.5 uL; Lymphocytes % (auto) 15.3 % (10.0-50.0); Mean Corpuscular Hemoglobin 33.1 pg (28.0-32.0); Mean Corpuscular Hgb Conc. 34.6 g/dL (32.0-36.0); Mean Corpuscular Volume 95.5 fL (80.0-100.0); Monocytes # (auto) 0.3 uL; Monocytes % (auto) 8.1 % (0.0-12.0); Neutrophils # (auto) 2.6 uL; Neutrophils % (auto) 71.9 % (37.0-80.0); Nucleated Red Blood Cells % 0.3 %; Platelet Count (auto) 120 10^3/uL (140-450); Red Blood Cells 3.35 10^6/uL (4.5-5.90); White Blood Cell 3.6 10^3/uL (4.4-10.8)
[2018-01-26] MEDS: SODIUM CHLOR 0.9% PF (SALINE LOCK) 10ML VIAL/SYR IV SCH ×3 (06:20→21:54)
[2018-01-26] MEDS: FUROSEMIDE 40 MG TAB PO SCH ×2 (06:21→18:10)
[2018-01-26] MEDS: SUCRALFATE 1 GM TAB PO SCH ×4 (06:36→21:55)
[2018-01-26] MEDS: glipiZIDE 5 MG TAB PO SCH ×2 (06:36→18:08)
[2018-01-26 06:37] LABS: INR 1.16 (0.9-1.15); Prothrombin Time 12.3 sec (9.27-12.13)
[2018-01-26] MEDS: InsuLIN REG 1unit/0.01ml Soln (100units/ml) SC SCH ×4 (06:37→22:16)
[2018-01-26] MEDS: ACCU-CHEK COMFORT CURVE STRIP VI SCH ×4 (06:37→21:57)
[2018-01-26 06:39] LABS: Calcium 8.1 mg/dL (8.5-10.1); Potassium 3.8 mmol/L (3.5-5.1)
[2018-01-26 06:43] LABS: Albumin 3.4 g/dL (3.4-5.0); BUN/Creatinine Ratio 25.2
[2018-01-26 06:45] LABS: Bilirubin, Total 0.7 mg/dL (0.2-1.0); Partial Thromboplastin Time 81.5 sec (23.78-33.04); Total Protein 7.4 g/dL (6.4-8.2)
[2018-01-26] MEDS: FERROUS SULFATE 325 MG TAB PO SCH ×2 (07:59→18:10)
[2018-01-26 08:46] VITALS: BP 152/80
[2018-01-26] MEDS: PANTOPRAZOLE 40 MG TAB PO SCH (09:58)
[2018-01-26] MEDS: ZINC SULFATE 220mg CAP or TAB PO SCH (09:58)
[2018-01-26] MEDS: CITALOPRAM HYDROBR 20 MG TAB PO SCH (09:59)
[2018-01-26] MEDS: ASCORBIC ACID 500 MG TAB PO SCH ×2 (09:59→21:55)
[2018-01-26] MEDS: AMIODARONE HCL 200 MG TAB PO SCH ×2 (09:59→21:56)
[2018-01-26] MEDS: MULTIPLE VITAMIN TAB PO SCH (09:59)
[2018-01-26] MEDS: ASPirin-EC 81 mg tab PO SCH (09:59)
[2018-01-26] MEDS: METOPROLOL TARTRATE 50 MG TAB PO SCH ×2 (10:00→21:57)
[2018-01-26] MEDS ORDERED: RIVA20TA PO (10:31)
[2018-01-26 12:03] VITALS: BP 139/80
[2018-01-26] MEDS: ERTAPENEM SOD INJ 1 GM in SODIUM CHL 0.9% 50 ML IV SCH (12:19)
[2018-01-26] MEDS: HYDROcodone-ACET 5/325MG TAB PO PRN ×2 (15:48→20:51)
[2018-01-26 17:23] VITALS: BP 135/75
[2018-01-26] MEDS ORDERED: RIVAROXABAN 15 MG TAB PO SCH (18:00)
[2018-01-26 21:48] VITALS: BP 139/78
[2018-01-26] MEDS: ATORVASTATIN 20 MG TAB PO SCH (21:56)
[2018-01-26] MEDS ORDERED: FAMOTIDINE 20 MG TAB PO SCH (22:00)
[2018-01-27 04:38] VITALS: BP 141/80
[2018-01-27] MEDS: HYDROcodone-ACET 5/325MG TAB PO PRN ×2 (05:49→13:05)
[2018-01-27] MEDS: prednisoLONE ACETATE 1% OPTH SUSP 5ML EACHEYE SCH ×2 (06:00→12:00)
[2018-01-27] MEDS: SODIUM CHLOR 0.9% PF (SALINE LOCK) 10ML VIAL/SYR IV SCH ×2 (06:09→14:00)
[2018-01-27] MEDS: FUROSEMIDE 40 MG TAB PO SCH (06:13)
[2018-01-27] MEDS: ACCU-CHEK COMFORT CURVE STRIP VI SCH ×2 (06:46→11:58)
[2018-01-27] MEDS: InsuLIN REG 1unit/0.01ml Soln (100units/ml) SC SCH ×2 (06:46→12:43)
[2018-01-27] MEDS: glipiZIDE 5 MG TAB PO SCH (06:46)
[2018-01-27] MEDS: SUCRALFATE 1 GM TAB PO SCH ×2 (06:47→11:57)
[2018-01-27 07:59] LABS: Basophils # (auto) 0 uL; Basophils % (auto) 0.5 % (0.0-2.0); Eosinophils # (auto) 0.1 uL; Eosinophils % (auto) 2.5 % (0.0-7.0); Hematocrit 33.4 % (41.0-53.0); Hemoglobin 11.4 g/dL (13.5-17.5); Lymphocytes # (auto) 0.5 uL; Lymphocytes % (auto) 8.4 % (10.0-50.0); Mean Corpuscular Hemoglobin 32.3 pg (28.0-32.0); Mean Corpuscular Hgb Conc. 34.2 g/dL (32.0-36.0); Mean Corpuscular Volume 94.4 fL (80.0-100.0); Monocytes # (auto) 0.4 uL; Monocytes % (auto) 7.1 % (0.0-12.0); Neutrophils # (auto) 4.3 uL; Neutrophils % (auto) 81.5 % (37.0-80.0); Nucleated Red Blood Cells % 0.1 %; Platelet Count (auto) 129 10^3/uL (140-450); Red Blood Cells 3.54 10^6/uL (4.5-5.90); Red Cell Distribution Width 14.8 % (11.8-14.3); White Blood Cell 5.3 10^3/uL (4.4-10.8)
[2018-01-27 08:13] LABS: BUN/Creatinine Ratio 25.3; Calcium 9.1 mg/dL (8.5-10.1); Potassium 3.5 mmol/L (3.5-5.1)
[2018-01-27 09:00] VITALS: BP 131/82
[2018-01-27] MEDS: MULTIPLE VITAMIN TAB PO SCH (09:33)
[2018-01-27] MEDS: ERTAPENEM SOD INJ 1 GM in SODIUM CHL 0.9% 50 ML IV SCH (09:33)
[2018-01-27] MEDS: AMIODARONE HCL 200 MG TAB PO SCH (09:33)
[2018-01-27] MEDS: ASPirin-EC 81 mg tab PO SCH (09:33)
[2018-01-27] MEDS: FERROUS SULFATE 325 MG TAB PO SCH (09:33)
[2018-01-27] MEDS: ASCORBIC ACID 500 MG TAB PO SCH (09:34)
[2018-01-27] MEDS: PANTOPRAZOLE 40 MG TAB PO SCH (09:34)
[2018-01-27] MEDS: ZINC SULFATE 220mg CAP or TAB PO SCH (09:34)
[2018-01-27] MEDS: METOPROLOL TARTRATE 50 MG TAB PO SCH (09:34)
[2018-01-27] MEDS: CITALOPRAM HYDROBR 20 MG TAB PO SCH (09:36)
[2018-01-27 12:57] LABS: INR 1.3 (0.9-1.15); Prothrombin Time 13.7 sec (9.27-12.13)
[2018-01-27 13:00] VITALS: BP 115/79
[2018-01-27 13:03] LABS: Partial Thromboplastin Time 106.6 sec (23.78-33.04)
== END 2018-01-27 14:57 | disposition left against medical advice (07) | DRG 65 ==
LOC: EDBD 16:25 → ER 16:25 → TELE 16:26 → TELE-EAST 21:37 → EAST 01-27 11:10
PROVIDERS: ADMIT Internal Medicine; ATTEND Internal Medicine Pulmonary Disease
DX: I63.9 Cerebral infarction, unspecified (principal); I48.92 Unspecified atrial flutter; I50.42 Chronic combined systolic (congestive) and diastolic (congestive) heart failure; L03.116 Cellulitis of left lower limb; L03.115 Cellulitis of right lower limb; I13.0 Hypertensive heart and chronic kidney disease with heart failure and stage 1 through stage 4 chronic kidney disease, or unspecified chronic kidney disease; D69.6 Thrombocytopenia, unspecified; D63.8 Anemia in other chronic diseases classified elsewhere; E83.51 Hypocalcemia; E11.21 Type 2 diabetes mellitus with diabetic nephropathy; E11.22 Type 2 diabetes mellitus with diabetic chronic kidney disease; E11.42 Type 2 diabetes mellitus with diabetic polyneuropathy; E11.51 Type 2 diabetes mellitus with diabetic peripheral angiopathy without gangrene; E78.5 Hyperlipidemia, unspecified; G47.10 Hypersomnia, unspecified; G56.32 Lesion of radial nerve, left upper limb; G89.4 Chronic pain syndrome; I07.1 Rheumatic tricuspid insufficiency; F41.9 Anxiety disorder, unspecified; K59.00 Constipation, unspecified; G47.419 Narcolepsy without cataplexy; I67.2 Cerebral atherosclerosis; H26.9 Unspecified cataract; M19.90 Unspecified osteoarthritis, unspecified site; R26.89 Other abnormalities of gait and mobility; Z53.21 Procedure and treatment not carried out due to patient leaving prior to being seen by health care provider; I25.10 Atherosclerotic heart disease of native coronary artery without angina pectoris; I27.21 Secondary pulmonary arterial hypertension; I35.8 Other nonrheumatic aortic valve disorders; I48.91 Unspecified atrial fibrillation; N18.3 Chronic kidney disease, stage 3 (moderate); Z79.891 Long term (current) use of opiate analgesic; Z82.49 Family history of ischemic heart disease and other diseases of the circulatory system; Z83.3 Family history of diabetes mellitus; Z87.11 Personal history of peptic ulcer disease; Z90.89 Acquired absence of other organs; Z98.61 Coronary angioplasty status; Z89.421 Acquired absence of other right toe(s); Z95.828 Presence of other vascular implants and grafts; Z88.6 Allergy status to analgesic agent; Z88.8 Allergy status to other drugs, medicaments and biological substances; Z79.899 Other long term (current) drug therapy
CPT/HCPCS: 36415; 70450; 80048; 80053; 80320; 82962; 83036; 83880; 84443; 84484; 85025; 85610; 85730; 87081; 93886; 94761; 96361; 96374; J1335; J1815

== ENCOUNTER → 2018-01-31 | Outpatient (CLI) | payer MEDICARE, BC ==
[~2018-01-31] MED LIST changes: +AMIO200T33 PO; +ASCO500T11 PO; +CALC600T10 OR; +CYANOCOBALAMIN (B-12) 1000 MCG/1 ML VIAL IM ONE; +CYANOCOBALAMIN (B-12) 1000 MCG/1 ML VIAL ONE; +HYDR-531 PO; +INSLISPI SC; +LEVO25TA49 PO; +MORP1CAP30 PO; +RIVA20TA PO; -WARF4TAB31 PO
[2018-01-31 10:20] VITALS: BP 113/64
[2018-01-31 11:15] VITALS: BP 124/71
[2018-01-31 16:22] LABS: Urine Blood Negative /uL (Negative); Urine Specific Gravity 1.013 (1.001-1.035)
== END | disposition home or self-care (01) ==
LOC: CHF HDHVI 10:30
PROVIDERS: ATTEND Internal Medicine Cardiovascular Disease
DX: D51.9 Vitamin B12 deficiency anemia, unspecified (principal); E55.9 Vitamin D deficiency, unspecified; N39.0 Urinary tract infection, site not specified; E11.22 Type 2 diabetes mellitus with diabetic chronic kidney disease; I13.0 Hypertensive heart and chronic kidney disease with heart failure and stage 1 through stage 4 chronic kidney disease, or unspecified chronic kidney disease; N18.3 Chronic kidney disease, stage 3 (moderate); I50.42 Chronic combined systolic (congestive) and diastolic (congestive) heart failure; D63.1 Anemia in chronic kidney disease; F41.9 Anxiety disorder, unspecified; I25.10 Atherosclerotic heart disease of native coronary artery without angina pectoris; E78.5 Hyperlipidemia, unspecified; D69.6 Thrombocytopenia, unspecified; I48.91 Unspecified atrial fibrillation; E11.42 Type 2 diabetes mellitus with diabetic polyneuropathy; M19.90 Unspecified osteoarthritis, unspecified site; Z79.899 Other long term (current) drug therapy
CPT/HCPCS: 81003; 82306; 82607; 87086; 96372; G0463; J3420

== ENCOUNTER → 2018-02-08 | Outpatient (CLI) | payer MEDICARE, BC ==
[~2018-02-08] MED LIST changes: -CYANOCOBALAMIN (B-12) 1000 MCG/1 ML VIAL IM ONE; -CYANOCOBALAMIN (B-12) 1000 MCG/1 ML VIAL ONE
[2018-02-08 12:18] VITALS: BP 118/72
[2018-02-08 13:05] VITALS: BP 109/78
[2018-02-08 16:07] LABS: Basophils # (auto) 0 uL; Eosinophils # (auto) 0.1 uL; Hematocrit 33.3 % (41.0-53.0); Hemoglobin 10.7 g/dL (13.5-17.5); Lymphocytes # (auto) 0.7 uL; Lymphocytes % (auto) 21.2 % (10.0-50.0); Mean Corpuscular Hemoglobin 31.5 pg (28.0-32.0); Mean Corpuscular Volume 98.5 fL (80.0-100.0); Monocytes # (auto) 0.5 uL; Monocytes % (auto) 13.6 % (0.0-12.0); Neutrophils % (auto) 60.2 % (37.0-80.0); Nucleated Red Blood Cells % 0.3 %; Platelet Count (auto) 105 10^3/uL (140-450); Red Blood Cells 3.38 10^6/uL (4.5-5.90); Red Cell Distribution Width 15.2 % (11.8-14.3); White Blood Cell 3.3 10^3/uL (4.4-10.8)
== END | disposition home or self-care (01) ==
LOC: CHF HDHVI 12:22
PROVIDERS: ATTEND Internal Medicine Cardiovascular Disease
DX: I27.21 Secondary pulmonary arterial hypertension (principal); E87.6 Hypokalemia; R94.4 Abnormal results of kidney function studies; D64.9 Anemia, unspecified; I25.10 Atherosclerotic heart disease of native coronary artery without angina pectoris; E11.9 Type 2 diabetes mellitus without complications; R94.31 Abnormal electrocardiogram [ECG] [EKG]
CPT/HCPCS: 36415; 82565; 84132; 84520; 85025; 93005; 93701; G0463

== ENCOUNTER → 2018-02-15 | Outpatient (CLI) | payer MEDICARE, BC ==
[2018-02-15 11:00] VITALS: BP 132/71
[2018-02-15 11:35] VITALS: BP 127/71
[2018-02-15 16:08] LABS: Basophils # (auto) 0 uL; Basophils % (auto) 0.6 % (0.0-2.0); Eosinophils # (auto) 0.1 uL; Eosinophils % (auto) 3.2 % (0.0-7.0); Hematocrit 33.8 % (41.0-53.0); Lymphocytes # (auto) 0.7 uL; Lymphocytes % (auto) 19.1 % (10.0-50.0); Mean Corpuscular Hemoglobin 31.2 pg (28.0-32.0); Mean Corpuscular Hgb Conc. 32.7 g/dL (32.0-36.0); Mean Corpuscular Volume 95.3 fL (80.0-100.0); Monocytes # (auto) 0.4 uL; Monocytes % (auto) 10.8 % (0.0-12.0); Neutrophils # (auto) 2.4 uL; Neutrophils % (auto) 66.3 % (37.0-80.0); Nucleated Red Blood Cells % 0.5 %; Platelet Count (auto) 102 10^3/uL (140-450); Red Blood Cells 3.54 10^6/uL (4.5-5.90); Red Cell Distribution Width 14.6 % (11.8-14.3); White Blood Cell 3.6 10^3/uL (4.4-10.8)
[2018-02-15 16:15] LABS: INR 1.15 (0.9-1.15); Partial Thromboplastin Time 67.6 sec (23.78-33.04); Prothrombin Time 12.2 sec (9.27-12.13)
[2018-02-15 16:19] LABS: BUN/Creatinine Ratio 20.1; Calcium 8.5 mg/dL (8.5-10.1); Potassium 3.8 mmol/L (3.5-5.1)
== END | disposition home or self-care (01) ==
LOC: Rad HDHVI 10:58
PROVIDERS: ATTEND Internal Medicine Cardiovascular Disease
DX: Z01.818 Encounter for other preprocedural examination (principal); I51.7 Cardiomegaly; D64.9 Anemia, unspecified; I10 Essential (primary) hypertension; R79.1 Abnormal coagulation profile
CPT/HCPCS: 36415; 71046; 80048; 85025; 85610; 85730; G0463

== ENCOUNTER → 2018-02-25 | Outpatient (CLI) | payer MEDICARE, BC ==
[~2018-02-25] MED LIST changes: -HYDR-4683 PO; -MORP60TA25 PO; -MOXI0.5D OP; -PRED1SUS3 OP
[2018-02-25 11:15] VITALS: BP 134/82
[2018-02-25 12:04] LABS: BUN/Creatinine Ratio 25.8; Potassium 3.9 mmol/L (3.5-5.1)
[2018-02-25 12:08] LABS: Basophils # (auto) 0 uL; Basophils % (auto) 0.8 % (0.0-2.0); Eosinophils # (auto) 0.2 uL; Eosinophils % (auto) 5.3 % (0.0-7.0); Hematocrit 34.5 % (41.0-53.0); Lymphocytes # (auto) 0.5 uL; Lymphocytes % (auto) 16.3 % (10.0-50.0); Mean Corpuscular Hemoglobin 30.5 pg (28.0-32.0); Mean Corpuscular Volume 95.4 fL (80.0-100.0); Monocytes # (auto) 0.4 uL; Monocytes % (auto) 11.7 % (0.0-12.0); Neutrophils # (auto) 2.2 uL; Neutrophils % (auto) 65.9 % (37.0-80.0); Nucleated Red Blood Cells % 0.1 %; Platelet Count (auto) 123 10^3/uL (140-450); Red Blood Cells 3.61 10^6/uL (4.5-5.90); Red Cell Distribution Width 14.1 % (11.8-14.3); White Blood Cell 3.4 10^3/uL (4.4-10.8)
[2018-02-25 12:16] LABS: % Iron Saturation 9.5 % (20-55)
[2018-02-25 12:30] VITALS: BP 140/68
== END | disposition home or self-care (01) ==
LOC: LAB 10:33
PROVIDERS: ATTEND Internal Medicine Cardiovascular Disease
DX: I11.0 Hypertensive heart disease with heart failure (principal); I50.9 Heart failure, unspecified; D64.9 Anemia, unspecified; E61.1 Iron deficiency; I27.21 Secondary pulmonary arterial hypertension; E11.9 Type 2 diabetes mellitus without complications; I25.10 Atherosclerotic heart disease of native coronary artery without angina pectoris; R79.89 Other specified abnormal findings of blood chemistry
CPT/HCPCS: 36415; 80048; 82728; 83540; 83550; 85025; 85045; G0463

== ENCOUNTER → 2018-03-16 | Outpatient (CLI) | payer MEDICARE, BC ==
[~2018-03-16] MED LIST changes: +CYANOCOBALAMIN (B-12) 1000 MCG/1 ML VIAL IM ONE; +CYANOCOBALAMIN (B-12) 1000 MCG/1 ML VIAL ONE
[2018-03-16 10:00] VITALS: BP 136/72
[2018-03-16 10:40] VITALS: BP 138/74
== END | disposition home or self-care (01) ==
LOC: CHF HDHVI 10:27
PROVIDERS: ATTEND Internal Medicine Cardiovascular Disease
DX: D51.9 Vitamin B12 deficiency anemia, unspecified (principal); I27.21 Secondary pulmonary arterial hypertension; I13.0 Hypertensive heart and chronic kidney disease with heart failure and stage 1 through stage 4 chronic kidney disease, or unspecified chronic kidney disease; I50.42 Chronic combined systolic (congestive) and diastolic (congestive) heart failure; N18.3 Chronic kidney disease, stage 3 (moderate); J44.9 Chronic obstructive pulmonary disease, unspecified; E78.5 Hyperlipidemia, unspecified; I05.0 Rheumatic mitral stenosis; E11.22 Type 2 diabetes mellitus with diabetic chronic kidney disease; E11.42 Type 2 diabetes mellitus with diabetic polyneuropathy; M19.90 Unspecified osteoarthritis, unspecified site; F41.9 Anxiety disorder, unspecified; E11.21 Type 2 diabetes mellitus with diabetic nephropathy; K21.9 Gastro-esophageal reflux disease without esophagitis; E11.51 Type 2 diabetes mellitus with diabetic peripheral angiopathy without gangrene; I08.1 Rheumatic disorders of both mitral and tricuspid valves; I67.2 Cerebral atherosclerosis; G89.4 Chronic pain syndrome; I48.92 Unspecified atrial flutter; E78.00 Pure hypercholesterolemia, unspecified; I48.1 Persistent atrial fibrillation; I07.1 Rheumatic tricuspid insufficiency; Z95.828 Presence of other vascular implants and grafts; Z89.421 Acquired absence of other right toe(s); Z79.891 Long term (current) use of opiate analgesic; Z79.899 Other long term (current) drug therapy; Z88.8 Allergy status to other drugs, medicaments and biological substances; Z86.73 Personal history of transient ischemic attack (TIA), and cerebral infarction without residual deficits; Z98.61 Coronary angioplasty status; Z87.440 Personal history of urinary (tract) infections; Z79.82 Long term (current) use of aspirin; Z79.4 Long term (current) use of insulin
CPT/HCPCS: 96372; G0463; J3420

== ENCOUNTER → 2018-03-25 | Outpatient (CLI) | payer MEDICARE, BC ==
[~2018-03-25] MED LIST changes: +BUMETANIDE (0.25MG/ML) 4 ML VIAL IV ONE; +BUMETANIDE (0.25MG/ML) 4 ML VIAL ONE; +MACI1TAB2 PO; +POTASSIUM CHL 10 Meq TABLET PO ONE; +TADA5TAB11 PO; +TORS10TA PO
[2018-03-25 09:00] VITALS: BP 131/53
[2018-03-25 10:00] VITALS: BP 150/63
[2018-03-25 12:10] LABS: Basophils # (auto) 0 uL; Basophils % (auto) 0.8 % (0.0-2.0); Eosinophils # (auto) 0.1 uL; Eosinophils % (auto) 5.1 % (0.0-7.0); Hematocrit 30.6 % (41.0-53.0); Hemoglobin 9.9 g/dL (13.5-17.5); Lymphocytes # (auto) 0.4 uL; Lymphocytes % (auto) 14.7 % (10.0-50.0); Mean Corpuscular Hemoglobin 30.4 pg (28.0-32.0); Mean Corpuscular Hgb Conc. 32.3 g/dL (32.0-36.0); Mean Corpuscular Volume 94.1 fL (80.0-100.0); Monocytes # (auto) 0.3 uL; Monocytes % (auto) 12.3 % (0.0-12.0); Neutrophils # (auto) 1.8 uL; Neutrophils % (auto) 67.1 % (37.0-80.0); Nucleated Red Blood Cells % 0.2 %; Platelet Count (auto) 104 10^3/uL (140-450); Red Blood Cells 3.25 10^6/uL (4.5-5.90); Red Cell Distribution Width 14.9 % (11.8-14.3); White Blood Cell 2.7 10^3/uL (4.4-10.8)
[2018-03-25 12:21] LABS: Albumin 3.3 g/dL (3.4-5.0); Calcium 8.3 mg/dL (8.5-10.1); Magnesium 2.7 mg/dL (1.6-2.6); Potassium 3.6 mmol/L (3.5-5.1)
[2018-03-25 12:25] LABS: BUN/Creatinine Ratio 37.1; Bilirubin, Total 0.5 mg/dL (0.2-1.0); Total Protein 6.9 g/dL (6.4-8.2)
== END | disposition home or self-care (01) ==
LOC: CHF HDHVI 09:16
PROVIDERS: ATTEND Internal Medicine Cardiovascular Disease
DX: D51.9 Vitamin B12 deficiency anemia, unspecified (principal); E11.51 Type 2 diabetes mellitus with diabetic peripheral angiopathy without gangrene; I27.21 Secondary pulmonary arterial hypertension; I13.0 Hypertensive heart and chronic kidney disease with heart failure and stage 1 through stage 4 chronic kidney disease, or unspecified chronic kidney disease; I50.42 Chronic combined systolic (congestive) and diastolic (congestive) heart failure; N18.3 Chronic kidney disease, stage 3 (moderate); E11.22 Type 2 diabetes mellitus with diabetic chronic kidney disease; E11.42 Type 2 diabetes mellitus with diabetic polyneuropathy; E11.21 Type 2 diabetes mellitus with diabetic nephropathy; I25.10 Atherosclerotic heart disease of native coronary artery without angina pectoris; I48.1 Persistent atrial fibrillation; J44.9 Chronic obstructive pulmonary disease, unspecified; E03.9 Hypothyroidism, unspecified; E78.5 Hyperlipidemia, unspecified; E78.00 Pure hypercholesterolemia, unspecified; E44.0 Moderate protein-calorie malnutrition; G43.909 Migraine, unspecified, not intractable, without status migrainosus; I08.1 Rheumatic disorders of both mitral and tricuspid valves; K70.30 Alcoholic cirrhosis of liver without ascites; M19.90 Unspecified osteoarthritis, unspecified site; K21.9 Gastro-esophageal reflux disease without esophagitis; E83.40 Disorders of magnesium metabolism, unspecified; G89.4 Chronic pain syndrome; F41.9 Anxiety disorder, unspecified; R53.1 Weakness; Z79.4 Long term (current) use of insulin; Z79.82 Long term (current) use of aspirin; Z79.891 Long term (current) use of opiate analgesic; Z79.01 Long term (current) use of anticoagulants; Z86.73 Personal history of transient ischemic attack (TIA), and cerebral infarction without residual deficits; Z89.431 Acquired absence of right foot; Z98.61 Coronary angioplasty status
CPT/HCPCS: 36415; 80053; 83735; 85025; 96372; 96374; G0463; J3420; J3490

== ENCOUNTER 2018-03-28 23:33 | Inpatient (IN) | payer MEDICARE, BC ==
[~2018-03-28] VITALS: Ht 177.8 cm; Wt 110.2 kg
[~2018-03-28 23:33] MED LIST changes: -BUMETANIDE (0.25MG/ML) 4 ML VIAL IV ONE; -BUMETANIDE (0.25MG/ML) 4 ML VIAL ONE; -CYANOCOBALAMIN (B-12) 1000 MCG/1 ML VIAL IM ONE; -CYANOCOBALAMIN (B-12) 1000 MCG/1 ML VIAL ONE; -MACI1TAB2 PO; -POTASSIUM CHL 10 Meq TABLET PO ONE; -TADA5TAB11 PO; -TORS10TA PO
[2018-03-29] VITALS (43 sets, daily range): BP systolic 96–140; BP diastolic 44–112
[2018-03-29] MEDS ORDERED: SODIUM CHLORIDE 0.9% 500 ML IV ONE (00:10)
[2018-03-29] MEDS ORDERED: ONDANSETRON HCL 4 MG/2 ML VIAL IV ONE (00:15)
[2018-03-29 00:22] LABS: Basophils # (auto) 0 uL; Eosinophils # (auto) 0 uL; Lymphocytes # (auto) 0.3 uL; Monocytes # (auto) 0.2 uL; Monocytes % (auto) 7.4 % (0.0-12.0); Red Cell Distribution Width 14.9 % (11.8-14.3)
[2018-03-29 00:24] LABS: Basophils % (auto) 0.6 % (0.0-2.0); Eosinophils % (auto) 1.2 % (0.0-7.0); Hematocrit 20.1 % (41.0-53.0); Mean Corpuscular Hemoglobin 30.2 pg (28.0-32.0); Mean Corpuscular Hgb Conc. 32.5 g/dL (32.0-36.0); Mean Corpuscular Volume 93.1 fL (80.0-100.0); Neutrophils # (auto) 2.5 uL; Neutrophils % (auto) 81.8 % (37.0-80.0); Nucleated Red Blood Cells % 0.2 %; Platelet Count (auto) 105 10^3/uL (140-450); Red Blood Cells 2.16 10^6/uL (4.5-5.90)
[2018-03-29 00:27] LABS: Hemoglobin 6.5 g/dL (13.5-17.5)
[2018-03-29] MEDS ORDERED: OXYMETAZOLINE HCL 0.05 % NASAL SPRAY 15ML ONE (00:30)
[2018-03-29 00:37] LABS: Albumin 2.7 g/dL (3.4-5.0); BUN/Creatinine Ratio 34.7; Calcium 7.7 mg/dL (8.5-10.1); Potassium 4.4 mmol/L (3.5-5.1)
[2018-03-29 00:40] LABS: Bilirubin, Total 0.5 mg/dL (0.2-1.0); Total Protein 5.8 g/dL (6.4-8.2)
[2018-03-29] MEDS ORDERED: COCAINE HCL 4% TOP SOL 4ML TOP ONE ×2 (00:45)
[2018-03-29] MEDS ORDERED: HYDROcodone-ACET 7.5/325MG TAB PO ONE (01:30)
[2018-03-29] MEDS ORDERED: PANTOPRAZOLE 40 MG/10 ML VIAL IV ONE ×2 (03:30→04:35)
[2018-03-29] MEDS ORDERED: SODIUM CHLORIDE 0.9% 1,000 ML IV ONE (03:30)
[2018-03-29] MEDS: PANTOPRAZOLE 80 MG in SODIUM CHL 0.9% 60 ML IV ONE ×2 (03:30→04:30)
[2018-03-29] MEDS: LORazepam 2MG/ML-1ML VIAL IV PRN ×3 (04:54→22:18)
[2018-03-29] MEDS ORDERED: MORPHINE SULF INJ 2 MG/ML SYRINGE 1ML ONE (04:56)
[2018-03-29] MEDS: MORPHINE SULFATE 4 MG/ML SYR/VIAL IV PRN ×2 (05:03→15:02)
[2018-03-29] MEDS: ONDANSETRON HCL 4 MG/2 ML VIAL IV PRN (05:03)
[2018-03-29] MEDS ORDERED: DEXTROSE (50%) 50ML SYRG IV PRN (05:30)
[2018-03-29] MEDS: ACCU-CHEK COMFORT CURVE STRIP VI SCH ×4 (06:10→23:41)
[2018-03-29 06:14] LABS: BUN/Creatinine Ratio 34.2; Calcium 7.9 mg/dL (8.5-10.1); Potassium 4.6 mmol/L (3.5-5.1)
[2018-03-29] MEDS: InsuLIN REG 1unit/0.01ml Soln (100units/ml) SC SCH ×4 (06:14→23:41)
[2018-03-29] MEDS ORDERED: FUROSEMIDE 40 MG/4 ML VIAL IV ONE (06:45)
[2018-03-29] MEDS ORDERED: HYDROcodone-ACET 10/325MG TAB ONE (08:44)
[2018-03-29] MEDS: HYDROcodone-ACET 10/325MG TAB PO PRN ×4 (08:45→22:18)
[2018-03-29] MEDS: AMIODARONE HCL 200 MG TAB PO SCH (10:23)
[2018-03-29 10:42] LABS: Basophils # (auto) 0 uL; Basophils % (auto) 0.7 % (0.0-2.0); Eosinophils # (auto) 0 uL; Eosinophils % (auto) 0.6 % (0.0-7.0); Hematocrit 20.4 % (41.0-53.0); Lymphocytes # (auto) 0.4 uL; Lymphocytes % (auto) 10.3 % (10.0-50.0); Mean Corpuscular Hemoglobin 30.1 pg (28.0-32.0); Mean Corpuscular Hgb Conc. 32.1 g/dL (32.0-36.0); Mean Corpuscular Volume 93.7 fL (80.0-100.0); Monocytes # (auto) 0.2 uL; Monocytes % (auto) 6.5 % (0.0-12.0); Neutrophils # (auto) 2.9 uL; Neutrophils % (auto) 81.9 % (37.0-80.0); Nucleated Red Blood Cells % 0.2 %; Platelet Count (auto) 118 10^3/uL (140-450); Red Blood Cells 2.18 10^6/uL (4.5-5.90); Red Cell Distribution Width 15.2 % (11.8-14.3); White Blood Cell 3.6 10^3/uL (4.4-10.8)
[2018-03-29 10:50] LABS: Hemoglobin 6.6 g/dL (13.5-17.5)
[2018-03-29] MEDS ORDERED: PANTOPRAZOLE 80 MG in SODIUM CHL 0.9% 60 ML IV SCH (11:00)
[2018-03-29] MEDS: SODIUM CHLORIDE 0.9% 1,000 ML IV SCH ×2 (11:30→23:36)
[2018-03-29 12:33] LABS: Basophils # (auto) 0 uL; Eosinophils # (auto) 0.1 uL; Lymphocytes # (auto) 0.6 uL; Monocytes # (auto) 0.4 uL; Neutrophils # (auto) 2.9 uL
[2018-03-29 12:35] LABS: Basophils % (auto) 0.5 % (0.0-2.0); Eosinophils % (auto) 1.4 % (0.0-7.0); Hematocrit 20.5 % (41.0-53.0); Mean Corpuscular Hgb Conc. 32.8 g/dL (32.0-36.0); Mean Corpuscular Volume 94.5 fL (80.0-100.0); Neutrophils % (auto) 73.1 % (37.0-80.0); Platelet Count (auto) 102 10^3/uL (140-450); Red Blood Cells 2.17 10^6/uL (4.5-5.90); Red Cell Distribution Width 15.1 % (11.8-14.3)
[2018-03-29 12:43] LABS: Hemoglobin 6.7 g/dL (13.5-17.5)
[2018-03-29] MEDS ORDERED: OCTREOTIDE ACETATE 100 MCG in SODIUM CHL 0.9% 50 ML IV ONE (13:45)
[2018-03-29 13:51] LABS: INR 1.17 (0.9-1.15); Prothrombin Time 12.4 sec (9.27-12.13)
[2018-03-29] MEDS: OCTREOTIDE ACETATE 500 MCG in SODIUM CHL 0.9% 99 ML IV SCH ×2 (15:32→23:35)
[2018-03-29 16:35] LABS: Urine Bacteria NONE SEEN /hpf (None Seen); Urine Blood Negative /uL (Negative); Urine Specific Gravity 1.013 (1.001-1.035); Urine WBC 1 /hpf (0 - 3)
[2018-03-29] MEDS ORDERED: METOPROLOL SUCCINATE XL 50 MG TAB PO ONE (18:15)
[2018-03-29 21:57] LABS: Hemoglobin 8.1 g/dL (13.5-17.5)
[2018-03-29 21:58] LABS: Hematocrit 24.3 % (41.0-53.0)
[2018-03-29] MEDS ORDERED: METOPROLOL SUCCINATE XL 50 MG TAB PO SCH (22:00)
[2018-03-29] MEDS: PANTOPRAZOLE 40 MG/10 ML VIAL IV SCH (22:03)
[2018-03-30] VITALS (74 sets, daily range): BP systolic 82–144; BP diastolic 37–87
[2018-03-30 04:07] LABS: Basophils # (auto) 0 uL; Eosinophils # (auto) 0 uL; Hemoglobin 7.7 g/dL (13.5-17.5); Lymphocytes # (auto) 0.4 uL; Monocytes # (auto) 0.5 uL; Neutrophils # (auto) 4.8 uL; Platelet Count (auto) 100 10^3/uL (140-450); White Blood Cell 5.7 10^3/uL (4.4-10.8)
[2018-03-30 04:13] LABS: Basophils % (auto) 0.4 % (0.0-2.0); Eosinophils % (auto) 0.8 % (0.0-7.0); Hematocrit 22.7 % (41.0-53.0); Lymphocytes % (auto) 7.1 % (10.0-50.0); Mean Corpuscular Hemoglobin 30.9 pg (28.0-32.0); Mean Corpuscular Hgb Conc. 33.7 g/dL (32.0-36.0); Mean Corpuscular Volume 91.6 fL (80.0-100.0); Neutrophils % (auto) 83.7 % (37.0-80.0); Nucleated Red Blood Cells % 0.1 %; Red Blood Cells 2.48 10^6/uL (4.5-5.90); Red Cell Distribution Width 15.5 % (11.8-14.3)
[2018-03-30 04:23] LABS: INR 1.13 (0.9-1.15); Partial Thromboplastin Time 48.5 sec (23.78-33.04)
[2018-03-30 04:27] LABS: BUN/Creatinine Ratio 33.7; Calcium 7.8 mg/dL (8.5-10.1); Magnesium 2.3 mg/dL (1.6-2.6); Potassium 4.5 mmol/L (3.5-5.1)
[2018-03-30] MEDS: InsuLIN REG 1unit/0.01ml Soln (100units/ml) SC SCH ×3 (06:00→18:00)
[2018-03-30] MEDS: ACCU-CHEK COMFORT CURVE STRIP VI SCH ×3 (06:25→18:00)
[2018-03-30] MEDS: HYDROcodone-ACET 10/325MG TAB PO PRN ×3 (06:26→23:57)
[2018-03-30] MEDS: METOPROLOL SUCCINATE XL 50 MG TAB PO SCH ×2 (10:00→22:05)
[2018-03-30] MEDS: PANTOPRAZOLE 40 MG/10 ML VIAL IV SCH ×2 (12:03→22:04)
[2018-03-30] MEDS: AMIODARONE HCL 200 MG TAB PO SCH (12:04)
[2018-03-30] MEDS: OCTREOTIDE ACETATE 500 MCG in SODIUM CHL 0.9% 99 ML IV SCH ×2 (12:04→23:08)
[2018-03-30] MEDS: LORazepam 2MG/ML-1ML VIAL IV PRN (13:00)
[2018-03-30] MEDS: MORPHINE SULFATE 4 MG/ML SYR/VIAL IV PRN ×2 (20:19→22:05)
[2018-03-30 21:55] LABS: Hemoglobin 8.1 g/dL (13.5-17.5)
[2018-03-30 21:57] LABS: Hematocrit 24.5 % (41.0-53.0)
[2018-03-31] VITALS (36 sets, daily range): BP systolic 91–133; BP diastolic 36–95
[2018-03-31] MEDS: ACCU-CHEK COMFORT CURVE STRIP VI SCH ×4 (00:40→18:44)
[2018-03-31] MEDS: InsuLIN REG 1unit/0.01ml Soln (100units/ml) SC SCH ×4 (00:49→18:00)
[2018-03-31 03:52] LABS: Basophils # (auto) 0 uL; Basophils % (auto) 0.3 % (0.0-2.0); Eosinophils # (auto) 0.1 uL; Eosinophils % (auto) 1.3 % (0.0-7.0); Hematocrit 24.8 % (41.0-53.0); Hemoglobin 8.2 g/dL (13.5-17.5); Lymphocytes # (auto) 0.5 uL; Lymphocytes % (auto) 7.3 % (10.0-50.0); Mean Corpuscular Hemoglobin 30.9 pg (28.0-32.0); Mean Corpuscular Hgb Conc. 33.3 g/dL (32.0-36.0); Mean Corpuscular Volume 92.8 fL (80.0-100.0); Monocytes # (auto) 0.5 uL; Monocytes % (auto) 7.1 % (0.0-12.0); Platelet Count (auto) 118 10^3/uL (140-450); Red Blood Cells 2.67 10^6/uL (4.5-5.90); Red Cell Distribution Width 15.1 % (11.8-14.3); White Blood Cell 7.1 10^3/uL (4.4-10.8)
[2018-03-31 04:18] LABS: BUN/Creatinine Ratio 29.7; Calcium 7.9 mg/dL (8.5-10.1); Potassium 4.4 mmol/L (3.5-5.1)
[2018-03-31] MEDS: OCTREOTIDE ACETATE 500 MCG in SODIUM CHL 0.9% 99 ML IV SCH ×2 (09:45→18:44)
[2018-03-31] MEDS: DULoxetine HCL 30 MG CAP PO SCH (09:46)
[2018-03-31] MEDS: PANTOPRAZOLE 40 MG/10 ML VIAL IV SCH ×2 (09:46→22:58)
[2018-03-31] MEDS: METOPROLOL SUCCINATE XL 50 MG TAB PO SCH ×2 (09:48→22:58)
[2018-03-31] MEDS: SODIUM CHLORIDE 0.9% 1,000 ML IV SCH (11:08)
[2018-03-31] MEDS ORDERED: AMIODARONE HCL 200 MG TAB PO ONE (11:15)
[2018-03-31] MEDS: MORPHINE SULFATE 4 MG/ML SYR/VIAL IV PRN ×3 (11:17→22:59)
[2018-03-31] MEDS: HYDROcodone-ACET 10/325MG TAB PO PRN ×2 (12:57→18:00)
[2018-04-01] MEDS: OCTREOTIDE ACETATE 500 MCG in SODIUM CHL 0.9% 99 ML IV SCH ×3 (01:45→21:49)
[2018-04-01 05:00] VITALS: BP 131/75
[2018-04-01] MEDS: InsuLIN REG 1unit/0.01ml Soln (100units/ml) SC SCH ×4 (05:55→18:00)
[2018-04-01] MEDS: ACCU-CHEK COMFORT CURVE STRIP VI SCH ×4 (05:55→18:55)
[2018-04-01 06:30] LABS: Hematocrit 26.1 % (41.0-53.0); Hemoglobin 8.7 g/dL (13.5-17.5)
[2018-04-01 06:47] LABS: BUN/Creatinine Ratio 25.3; Calcium 8.2 mg/dL (8.5-10.1); Potassium 4.1 mmol/L (3.5-5.1)
[2018-04-01] MEDS: SODIUM CHLORIDE 0.9% 1,000 ML IV SCH (07:00)
[2018-04-01] MEDS: HYDROcodone-ACET 10/325MG TAB PO PRN ×4 (07:15→17:30)
[2018-04-01] MEDS: MORPHINE SULFATE 4 MG/ML SYR/VIAL IV PRN (08:59)
[2018-04-01 09:18] VITALS: BP 133/84
[2018-04-01] MEDS ORDERED: HYDROcodone-ACET 10/325MG TAB PO ONE (10:00)
[2018-04-01] MEDS: HYDROmorphone HCL 2 MG/ML VL IV PRN ×4 (10:09→21:49)
[2018-04-01 12:44] VITALS: BP_SYST 126; BP_SYST 133; BP_DIAS 75; BP_DIAS 84
[2018-04-01] MEDS ORDERED: MIDAZOLAM HCL 1MG/1ML-2 ML VIAL ONE (13:47)
[2018-04-01] MEDS ORDERED: fentaNYL CITRATE 100 MCG/2 ML VL ONE (13:47)
[2018-04-01] MEDS ORDERED: DEXAMETHASONE SOD PHOS 10MG/1ML VIAL INJ ONE (13:48)
[2018-04-01] MEDS ORDERED: PROPOFOL 10 MG/ML 20 ML IV ONE (13:51)
[2018-04-01 17:00] VITALS: BP 147/87
[2018-04-01] MEDS: PANTOPRAZOLE 40 MG/10 ML VIAL IV SCH ×2 (18:51→21:49)
[2018-04-01] MEDS: DULoxetine HCL 30 MG CAP PO SCH (18:52)
[2018-04-01] MEDS: AMIODARONE HCL 200 MG TAB PO SCH (18:52)
[2018-04-01] MEDS: METOPROLOL SUCCINATE XL 50 MG TAB PO SCH ×2 (18:53→21:48)
[2018-04-01 22:00] VITALS: BP 158/88
[2018-04-02] MEDS: InsuLIN REG 1unit/0.01ml Soln (100units/ml) SC SCH ×4 (00:07→18:11)
[2018-04-02] MEDS: ACCU-CHEK COMFORT CURVE STRIP VI SCH ×4 (00:07→18:10)
[2018-04-02] MEDS: SODIUM CHLORIDE 0.9% 1,000 ML IV SCH (00:14)
[2018-04-02] MEDS: HYDROmorphone HCL 2 MG/ML VL IV PRN ×4 (04:39→20:31)
[2018-04-02 05:00] VITALS: BP 130/69
[2018-04-02 05:26] LABS: Hemoglobin 9.4 g/dL (13.5-17.5)
[2018-04-02] MEDS: OCTREOTIDE ACETATE 500 MCG in SODIUM CHL 0.9% 99 ML IV SCH ×2 (07:21→16:58)
[2018-04-02 09:09] VITALS: BP 100/54
[2018-04-02] MEDS: PANTOPRAZOLE 40 MG/10 ML VIAL IV SCH ×2 (11:02→20:30)
[2018-04-02] MEDS: DULoxetine HCL 30 MG CAP PO SCH (11:02)
[2018-04-02] MEDS: AMIODARONE HCL 200 MG TAB PO SCH (11:03)
[2018-04-02] MEDS: METOPROLOL SUCCINATE XL 50 MG TAB PO SCH ×2 (11:03→22:00)
[2018-04-02] MEDS ORDERED: TADA5TAB11 PO (13:18)
[2018-04-02] MEDS ORDERED: TORS10TA PO (13:18)
[2018-04-02] MEDS ORDERED: MACI1TAB2 PO (13:18)
[2018-04-02 14:31] VITALS: BP 143/88
[2018-04-02 17:33] VITALS: BP 133/79
[2018-04-02] MEDS: ONDANSETRON HCL 4 MG/2 ML VIAL IV PRN (20:30)
[2018-04-02 22:00] VITALS: BP 115/63
[2018-04-03] MEDS: OCTREOTIDE ACETATE 500 MCG in SODIUM CHL 0.9% 99 ML IV SCH ×3 (03:45→23:45)
[2018-04-03] MEDS: HYDROcodone-ACET 10/325MG TAB PO PRN ×2 (04:37→12:22)
[2018-04-03 05:00] VITALS: BP 132/40
[2018-04-03 06:01] LABS: Hematocrit 25.8 % (41.0-53.0); Hemoglobin 8.4 g/dL (13.5-17.5)
[2018-04-03] MEDS: InsuLIN REG 1unit/0.01ml Soln (100units/ml) SC SCH ×4 (06:07→18:01)
[2018-04-03] MEDS: ACCU-CHEK COMFORT CURVE STRIP VI SCH ×4 (06:07→18:00)
[2018-04-03 06:21] LABS: Calcium 8.1 mg/dL (8.5-10.1); Potassium 4.2 mmol/L (3.5-5.1)
[2018-04-03 06:24] LABS: BUN/Creatinine Ratio 21.8
[2018-04-03 08:42] VITALS: BP 134/70
[2018-04-03] MEDS: HYDROmorphone HCL 2 MG/ML VL IV PRN ×3 (08:56→20:18)
[2018-04-03] MEDS: DULoxetine HCL 30 MG CAP PO SCH (08:58)
[2018-04-03] MEDS: PANTOPRAZOLE 40 MG/10 ML VIAL IV SCH ×2 (08:59→20:18)
[2018-04-03] MEDS: AMIODARONE HCL 200 MG TAB PO SCH (08:59)
[2018-04-03] MEDS: METOPROLOL SUCCINATE XL 50 MG TAB PO SCH ×2 (08:59→22:00)
[2018-04-03] MEDS ORDERED: DAKINS QUARTER STR 0.125% (NaHypochlorite) 473 ML TOPICAL SOL TOP ONE (11:15)
[2018-04-03] MEDS ORDERED: GOLYTELY 4L KIT PO ONE (12:00)
[2018-04-03 13:00] VITALS: BP 116/66
[2018-04-03 17:00] VITALS: BP 130/72
[2018-04-03] MEDS: ONDANSETRON HCL 4 MG/2 ML VIAL IV PRN (20:17)
[2018-04-03] MEDS: ACETAMINOPHEN 500 MG TAB PO PRN (20:18)
[2018-04-03 21:35] VITALS: BP 127/76
[2018-04-04 05:10] VITALS: BP 138/63
[2018-04-04] MEDS: InsuLIN REG 1unit/0.01ml Soln (100units/ml) SC SCH ×5 (06:00→23:10)
[2018-04-04] MEDS: ACCU-CHEK COMFORT CURVE STRIP VI SCH ×5 (06:05→23:10)
[2018-04-04] MEDS: HYDROmorphone HCL 2 MG/ML VL IV PRN ×3 (06:30→19:45)
[2018-04-04 07:13] LABS: Hemoglobin 8.3 g/dL (13.5-17.5)
[2018-04-04 07:23] LABS: BUN/Creatinine Ratio 20.6; Calcium 7.9 mg/dL (8.5-10.1); Potassium 4.1 mmol/L (3.5-5.1)
[2018-04-04] MEDS ORDERED: HYDROmorphone HCL 2 MG/ML VL IV PRN (10:15)
[2018-04-04] MEDS ORDERED: ONDANSETRON HCL 4 MG/2 ML VIAL IV ONE (10:15)
[2018-04-04] MEDS ORDERED: ACCU-CHEK COMFORT CURVE STRIP VI ONE (10:15)
[2018-04-04] MEDS ORDERED: NALOXONE HCL 0.4 MG/ML VIAL IV PRN (10:15)
[2018-04-04] MEDS ORDERED: LIDOCAINE 1% HCL (LOCAL ANESTH.) INJ 20ML MDV ONE (10:29)
[2018-04-04] MEDS ORDERED: MIDAZOLAM HCL 1MG/1ML-2 ML VIAL ONE ×2 (10:33→10:44)
[2018-04-04] MEDS ORDERED: fentaNYL CITRATE 100 MCG/2 ML VL ONE (10:33)
[2018-04-04] MEDS: DULoxetine HCL 30 MG CAP PO SCH (12:38)
[2018-04-04] MEDS: METOPROLOL SUCCINATE XL 50 MG TAB PO SCH ×2 (12:39→21:44)
[2018-04-04] MEDS: AMIODARONE HCL 200 MG TAB PO SCH (12:39)
[2018-04-04] MEDS: PANTOPRAZOLE 40 MG/10 ML VIAL IV SCH ×2 (12:40→21:43)
[2018-04-04] MEDS: OCTREOTIDE ACETATE 500 MCG in SODIUM CHL 0.9% 99 ML IV SCH ×2 (12:41→19:45)
[2018-04-04] MEDS: DAKINS QUARTER STR 0.125% (NaHypochlorite) 473 ML TOPICAL SOL TOP SCH (14:25)
[2018-04-04] MEDS: HYDROcodone-ACET 10/325MG TAB PO PRN (17:37)
[2018-04-04] MEDS: ACETAMINOPHEN 500 MG TAB PO PRN (21:43)
[2018-04-04 22:00] VITALS: BP 117/66
[2018-04-05] MEDS: HYDROmorphone HCL 2 MG/ML VL IV PRN ×7 (01:02→21:20)
[2018-04-05] MEDS: HYDROcodone-ACET 10/325MG TAB PO PRN ×5 (03:12→18:01)
[2018-04-05 05:00] VITALS: BP 111/56
[2018-04-05] MEDS: OCTREOTIDE ACETATE 500 MCG in SODIUM CHL 0.9% 99 ML IV SCH ×2 (06:11→15:45)
[2018-04-05] MEDS: ACCU-CHEK COMFORT CURVE STRIP VI SCH ×3 (06:11→18:00)
[2018-04-05] MEDS: InsuLIN REG 1unit/0.01ml Soln (100units/ml) SC SCH ×3 (06:11→18:00)
[2018-04-05 06:31] LABS: Hematocrit 25.9 % (41.0-53.0); Hemoglobin 8.2 g/dL (13.5-17.5)
[2018-04-05] MEDS: AMIODARONE HCL 200 MG TAB PO SCH (10:00)
[2018-04-05] MEDS: DAKINS QUARTER STR 0.125% (NaHypochlorite) 473 ML TOPICAL SOL TOP SCH (10:00)
[2018-04-05] MEDS: PANTOPRAZOLE 40 MG/10 ML VIAL IV SCH ×2 (10:13→21:20)
[2018-04-05] MEDS: DULoxetine HCL 30 MG CAP PO SCH (10:13)
[2018-04-05] MEDS: METOPROLOL SUCCINATE XL 50 MG TAB PO SCH ×2 (10:14→21:28)
[2018-04-05] MEDS ORDERED: LORazepam 2MG/ML-1ML VIAL IV PRN (11:00)
[2018-04-05] MEDS ORDERED: HYDROmorphone HCL 2 MG/ML VL IV ONE (17:45)
[2018-04-05] MEDS: ACETAMINOPHEN 500 MG TAB PO PRN (21:19)
[2018-04-05 22:00] VITALS: BP 122/74
[2018-04-06] MEDS: HYDROmorphone HCL 2 MG/ML VL IV PRN ×7 (01:32→21:02)
[2018-04-06] MEDS: OCTREOTIDE ACETATE 500 MCG in SODIUM CHL 0.9% 99 ML IV SCH ×3 (01:59→21:12)
[2018-04-06 05:00] VITALS: BP 131/71
[2018-04-06] MEDS: InsuLIN REG 1unit/0.01ml Soln (100units/ml) SC SCH ×4 (05:13→18:28)
[2018-04-06] MEDS: ACCU-CHEK COMFORT CURVE STRIP VI SCH ×4 (05:13→18:28)
[2018-04-06] MEDS: HYDROcodone-ACET 10/325MG TAB PO PRN ×4 (07:34→18:15)
[2018-04-06 08:47] VITALS: BP 128/73
[2018-04-06] MEDS: PANTOPRAZOLE 40 MG/10 ML VIAL IV SCH ×2 (10:21→21:07)
[2018-04-06] MEDS: DULoxetine HCL 30 MG CAP PO SCH (10:22)
[2018-04-06] MEDS: METOPROLOL SUCCINATE XL 50 MG TAB PO SCH ×2 (10:23→21:06)
[2018-04-06] MEDS: AMIODARONE HCL 200 MG TAB PO SCH (10:24)
[2018-04-06 13:00] VITALS: BP 132/70
[2018-04-06 17:00] VITALS: BP 143/89
[2018-04-06] MEDS: DAKINS QUARTER STR 0.125% (NaHypochlorite) 473 ML TOPICAL SOL TOP SCH (18:25)
[2018-04-06] MEDS: ONDANSETRON HCL 4 MG/2 ML VIAL IV PRN (21:02)
[2018-04-06 21:30] VITALS: BP 159/78
[2018-04-07] MEDS: ACCU-CHEK COMFORT CURVE STRIP VI SCH ×4 (00:22→18:00)
[2018-04-07] MEDS: InsuLIN REG 1unit/0.01ml Soln (100units/ml) SC SCH ×4 (00:23→18:00)
[2018-04-07] MEDS: HYDROmorphone HCL 2 MG/ML VL IV PRN ×5 (00:45→20:19)
[2018-04-07 04:30] VITALS: BP 155/84
[2018-04-07 05:31] LABS: Basophils # (auto) 0 uL; Basophils % (auto) 0.6 % (0.0-2.0); Eosinophils # (auto) 0.1 uL; Eosinophils % (auto) 2.9 % (0.0-7.0); Hematocrit 26.4 % (41.0-53.0); Hemoglobin 8.2 g/dL (13.5-17.5); Lymphocytes # (auto) 0.6 uL; Lymphocytes % (auto) 12.7 % (10.0-50.0); Mean Corpuscular Hemoglobin 28.5 pg (28.0-32.0); Mean Corpuscular Hgb Conc. 31.1 g/dL (32.0-36.0); Mean Corpuscular Volume 91.6 fL (80.0-100.0); Monocytes # (auto) 0.4 uL; Monocytes % (auto) 7.4 % (0.0-12.0); Neutrophils # (auto) 3.9 uL; Neutrophils % (auto) 76.4 % (37.0-80.0); Platelet Count (auto) 122 10^3/uL (140-450); Red Blood Cells 2.89 10^6/uL (4.5-5.90); Red Cell Distribution Width 14.6 % (11.8-14.3); White Blood Cell 5.1 10^3/uL (4.4-10.8)
[2018-04-07 05:54] LABS: Calcium 7.9 mg/dL (8.5-10.1); Magnesium 2.4 mg/dL (1.6-2.6); Potassium 4.8 mmol/L (3.5-5.1)
[2018-04-07 05:56] LABS: BUN/Creatinine Ratio 16.3
[2018-04-07] MEDS: OCTREOTIDE ACETATE 500 MCG in SODIUM CHL 0.9% 99 ML IV SCH (07:28)
[2018-04-07] MEDS: HYDROcodone-ACET 10/325MG TAB PO PRN (08:45)
[2018-04-07 09:00] VITALS: BP 147/88
[2018-04-07 09:44] LABS: INR 1.15 (0.9-1.15); Prothrombin Time 12.2 sec (9.27-12.13)
[2018-04-07] MEDS: DULoxetine HCL 30 MG CAP PO SCH (09:58)
[2018-04-07] MEDS: METOPROLOL SUCCINATE XL 50 MG TAB PO SCH ×2 (09:58→23:57)
[2018-04-07] MEDS: MULTIPLE VITAMINS W/ MINERALS TAB PO SCH (09:59)
[2018-04-07] MEDS: ASCORBIC ACID 500 MG TAB PO SCH (09:59)
[2018-04-07] MEDS: AMIODARONE HCL 200 MG TAB PO SCH (09:59)
[2018-04-07] MEDS: PANTOPRAZOLE 40 MG/10 ML VIAL IV SCH ×2 (09:59→23:57)
[2018-04-07] MEDS: DAKINS QUARTER STR 0.125% (NaHypochlorite) 473 ML TOPICAL SOL TOP SCH (10:00)
[2018-04-07 13:00] VITALS: BP 137/78
[2018-04-07] MEDS ORDERED: HYDROcodone-ACET 10/325MG TAB PO PRN (13:15)
[2018-04-07] MEDS ORDERED: ANGIOMAX 250 MG VIAL IV ONE ×3 (14:44→17:11)
[2018-04-07] MEDS ORDERED: fentaNYL CITRATE 100 MCG/2 ML VL ONE ×2 (14:45→16:09)
[2018-04-07] MEDS ORDERED: MIDAZOLAM HCL 1MG/1ML-2 ML VIAL ONE ×2 (14:45→16:09)
[2018-04-07] MEDS ORDERED: SODIUM CHL 0.9% 0 ML ONE (14:45)
[2018-04-07] MEDS ORDERED: LIDOCAINE 2%HCL (LOCAL ANESTH.) INJ 20ML MDV ONE (15:54)
[2018-04-07] MEDS ORDERED: IODIXANOL 320MG/ML 100ML BTL IV ONE (15:54)
[2018-04-07] MEDS ORDERED: SODIUM CHL 0.9% 50 ML ONE ×2 (16:09→17:11)
[2018-04-07] MEDS ORDERED: VERAPAMIL 2.5MG/ML INJ 2ML VIAL IV ONE (16:38)
[2018-04-07] MEDS ORDERED: NITROGLYCERIN 5MG/ML 10ML VIAL IV ONE (16:39)
[2018-04-07] MEDS ORDERED: methylPREDNISolone SOD SUCC 125 MG/2 ML VL ONE (16:46)
[2018-04-07] MEDS ORDERED: FAMOTIDINE (10MG/ML) 2ML VL IV ONE (16:47)
[2018-04-07] MEDS ORDERED: FUROSEMIDE 20 MG/2 ML VIAL ONE (16:50)
[2018-04-07] MEDS ORDERED: hydrOXYzine HCL 25 MG/ML VL IM ONE (16:51)
[2018-04-07] MEDS ORDERED: CLOPIDOGREL BISULFATE 75 MG TAB PO ONE (18:00)
[2018-04-07] MEDS ORDERED: CLOPIDOGREL BISULFATE 75 MG TAB ONE (18:07)
[2018-04-07 21:55] VITALS: BP 133/67
[2018-04-08] MEDS: HYDROmorphone HCL 2 MG/ML VL IV PRN ×2 (02:16→09:48)
[2018-04-08] MEDS: OCTREOTIDE ACETATE 500 MCG in SODIUM CHL 0.9% 99 ML IV SCH (03:45)
[2018-04-08 04:56] VITALS: BP 113/60
[2018-04-08] MEDS ORDERED: OCTREOTIDE ACETATE 500 MCG/ML VL ONE (05:30)
[2018-04-08] MEDS: InsuLIN REG 1unit/0.01ml Soln (100units/ml) SC SCH ×3 (05:51→12:59)
[2018-04-08] MEDS: ACCU-CHEK COMFORT CURVE STRIP VI SCH ×3 (05:51→12:59)
[2018-04-08 06:09] LABS: Basophils # (auto) 0 uL; Eosinophils # (auto) 0 uL; Lymphocytes # (auto) 0.2 uL; Monocytes # (auto) 0.1 uL; Neutrophils # (auto) 6.3 uL
[2018-04-08 06:12] LABS: Hematocrit 26.5 % (41.0-53.0); Hemoglobin 8.5 g/dL (13.5-17.5); Lymphocytes % (auto) 3.5 % (10.0-50.0); Mean Corpuscular Hemoglobin 29.2 pg (28.0-32.0); Mean Corpuscular Volume 91.3 fL (80.0-100.0); Monocytes % (auto) 1.4 % (0.0-12.0); Neutrophils % (auto) 95.1 % (37.0-80.0); Platelet Count (auto) 147 10^3/uL (140-450); Red Cell Distribution Width 14.9 % (11.8-14.3); White Blood Cell 6.6 10^3/uL (4.4-10.8)
[2018-04-08 06:32] LABS: Calcium 7.3 mg/dL (8.5-10.1); Potassium 4.6 mmol/L (3.5-5.1)
[2018-04-08 09:00] VITALS: BP 110/56
[2018-04-08] MEDS: DULoxetine HCL 30 MG CAP PO SCH (09:49)
[2018-04-08] MEDS: ASCORBIC ACID 500 MG TAB PO SCH (09:49)
[2018-04-08] MEDS: PANTOPRAZOLE 40 MG/10 ML VIAL IV SCH (09:49)
[2018-04-08] MEDS: AMIODARONE HCL 200 MG TAB PO SCH (09:51)
[2018-04-08] MEDS: MULTIPLE VITAMINS W/ MINERALS TAB PO SCH (09:51)
[2018-04-08] MEDS ORDERED: CLOPIDOGREL BISULFATE 75 MG TAB PO SCH (10:00)
[2018-04-08] MEDS: DAKINS QUARTER STR 0.125% (NaHypochlorite) 473 ML TOPICAL SOL TOP SCH (10:00)
[2018-04-08] MEDS: METOPROLOL SUCCINATE XL 50 MG TAB PO SCH (10:03)
[2018-04-08] MEDS ORDERED: PANT40TA2 PO (11:44)
[2018-04-08 12:17] VITALS: BP 110/56
== END 2018-04-08 13:30 | disposition home health service (06) | DRG 270 ==
LOC: EDBD 23:33 → ER 23:38 → TELE 03-29 04:29 → ICU WEST 03-29 11:42 → TELE-EAST 03-31 17:00
PROVIDERS: ADMIT Nurse Practitioner Family; ATTEND Internal Medicine
PROC: 30233N1 Transfusion of Nonautologous Red Blood Cells into Peripheral Vein, Percutaneous Approach (ICD-10-PCS; 2018-03-29)
PROC: 0DJ08ZZ Inspection of Upper Intestinal Tract, Via Natural or Artificial Opening Endoscopic (ICD-10-PCS; principal; 2018-04-01 13:38)
PROC: 0DBM8ZX Excision of Descending Colon, Via Natural or Artificial Opening Endoscopic, Diagnostic (ICD-10-PCS; 2018-04-04)
PROC: 04CS3ZZ Extirpation of Matter from Left Posterior Tibial Artery, Percutaneous Approach (ICD-10-PCS; 2018-04-07)
PROC: 047S3ZZ Dilation of Left Posterior Tibial Artery, Percutaneous Approach (ICD-10-PCS; 2018-04-07)
PROC: B41G1ZZ Fluoroscopy of Left Lower Extremity Arteries using Low Osmolar Contrast (ICD-10-PCS; 2018-04-07)
PROC: B41F1ZZ Fluoroscopy of Right Lower Extremity Arteries using Low Osmolar Contrast (ICD-10-PCS; 2018-04-07)
DX: E11.51 Type 2 diabetes mellitus with diabetic peripheral angiopathy without gangrene (principal); I85.11 Secondary esophageal varices with bleeding; K76.6 Portal hypertension; I13.0 Hypertensive heart and chronic kidney disease with heart failure and stage 1 through stage 4 chronic kidney disease, or unspecified chronic kidney disease; E44.0 Moderate protein-calorie malnutrition; I50.32 Chronic diastolic (congestive) heart failure; Z66 Do not resuscitate; K70.30 Alcoholic cirrhosis of liver without ascites; I73.9 Peripheral vascular disease, unspecified; I27.20 Pulmonary hypertension, unspecified; K31.89 Other diseases of stomach and duodenum; D64.9 Anemia, unspecified; E03.9 Hypothyroidism, unspecified; E11.22 Type 2 diabetes mellitus with diabetic chronic kidney disease; E11.21 Type 2 diabetes mellitus with diabetic nephropathy; E78.5 Hyperlipidemia, unspecified; I25.10 Atherosclerotic heart disease of native coronary artery without angina pectoris; I48.0 Paroxysmal atrial fibrillation; K80.20 Calculus of gallbladder without cholecystitis without obstruction; N18.3 Chronic kidney disease, stage 3 (moderate); R04.0 Epistaxis; D50.0 Iron deficiency anemia secondary to blood loss (chronic); K21.9 Gastro-esophageal reflux disease without esophagitis; K64.8 Other hemorrhoids; Z95.5 Presence of coronary angioplasty implant and graft; Z82.49 Family history of ischemic heart disease and other diseases of the circulatory system; Z88.8 Allergy status to other drugs, medicaments and biological substances; Z80.3 Family history of malignant neoplasm of breast; Z79.01 Long term (current) use of anticoagulants; Z79.899 Other long term (current) drug therapy; Z79.82 Long term (current) use of aspirin; Z68.34 Body mass index [BMI] 34.0-34.9, adult
CPT/HCPCS: 36415; 71045; 71250; 74176; 80048; 80053; 81001; 82962; 83036; 83735; 85014; 85018; 85025; 85610; 85730; 86850; 86900; 86901; 86920; 87040; 87081; 94761; 96361; 96374; 96375; 96376; 99152; 99291; A6257; C1769; C9113; G0378; J1100; J1815; J2001; J2250; J2405; J2704; J3490; Q9967

== ENCOUNTER → 2018-04-13 | Outpatient (CLI) | payer MEDICARE, BC ==
[~2018-04-13] MED LIST changes: +CYANOCOBALAMIN (B-12) 1000 MCG/1 ML VIAL IM ONE; +CYANOCOBALAMIN (B-12) 1000 MCG/1 ML VIAL ONE; +MACI1TAB2 PO; +TADA5TAB11 PO; +TORS10TA PO
[2018-04-13 13:15] VITALS: BP 125/79
[2018-04-13 14:15] VITALS: BP 133/69
[2018-04-13 16:22] LABS: Basophils # (auto) 0 uL; Basophils % (auto) 0.5 % (0.0-2.0); Eosinophils # (auto) 0.1 uL; Eosinophils % (auto) 2.8 % (0.0-7.0); Hematocrit 26.3 % (41.0-53.0); Hemoglobin 8.4 g/dL (13.5-17.5); Lymphocytes # (auto) 0.4 uL; Mean Corpuscular Hemoglobin 28.5 pg (28.0-32.0); Mean Corpuscular Hgb Conc. 31.9 g/dL (32.0-36.0); Mean Corpuscular Volume 89.5 fL (80.0-100.0); Monocytes # (auto) 0.5 uL; Monocytes % (auto) 12.3 % (0.0-12.0); Neutrophils # (auto) 3.2 uL; Neutrophils % (auto) 75.4 % (37.0-80.0); Nucleated Red Blood Cells % 0.1 %; Platelet Count (auto) 149 10^3/uL (140-450); Red Blood Cells 2.94 10^6/uL (4.5-5.90); Red Cell Distribution Width 14.7 % (11.8-14.3); White Blood Cell 4.3 10^3/uL (4.4-10.8)
[2018-04-13 16:23] LABS: BUN/Creatinine Ratio 17.2; Calcium 7.8 mg/dL (8.5-10.1); Magnesium 1.8 mg/dL (1.6-2.6); Potassium 3.2 mmol/L (3.5-5.1)
== END | disposition home or self-care (01) ==
LOC: CHF HDHVI 13:20
PROVIDERS: ATTEND Internal Medicine Cardiovascular Disease
DX: I27.21 Secondary pulmonary arterial hypertension (principal); I73.9 Peripheral vascular disease, unspecified; E83.40 Disorders of magnesium metabolism, unspecified; D64.9 Anemia, unspecified; I13.0 Hypertensive heart and chronic kidney disease with heart failure and stage 1 through stage 4 chronic kidney disease, or unspecified chronic kidney disease; E11.22 Type 2 diabetes mellitus with diabetic chronic kidney disease; N18.3 Chronic kidney disease, stage 3 (moderate); I50.42 Chronic combined systolic (congestive) and diastolic (congestive) heart failure; K21.9 Gastro-esophageal reflux disease without esophagitis; I25.10 Atherosclerotic heart disease of native coronary artery without angina pectoris; I48.0 Paroxysmal atrial fibrillation; J44.9 Chronic obstructive pulmonary disease, unspecified; G43.909 Migraine, unspecified, not intractable, without status migrainosus; M19.90 Unspecified osteoarthritis, unspecified site; E78.5 Hyperlipidemia, unspecified; E03.9 Hypothyroidism, unspecified; E78.00 Pure hypercholesterolemia, unspecified; G89.4 Chronic pain syndrome; F41.9 Anxiety disorder, unspecified; Z79.4 Long term (current) use of insulin; Z79.891 Long term (current) use of opiate analgesic; Z79.01 Long term (current) use of anticoagulants; Z79.82 Long term (current) use of aspirin; Z95.5 Presence of coronary angioplasty implant and graft; Z86.73 Personal history of transient ischemic attack (TIA), and cerebral infarction without residual deficits
CPT/HCPCS: 36415; 80048; 83735; 85025; 93701; 96372; G0463; J3420